=== PATIENT | male | born 1995 | race Caucasian/White ===

== ENCOUNTER 2022-03-19 21:13 | Emergency (ER) | payer OTHER ==
[2022-03-19] MEDS ORDERED: Sodium Chloride 0.9% 1000 ML 1,000 ML ONE (22:09)
[2022-03-19] MEDS: Sodium Chloride 0.9% 1000 ML 1,000 ML IV STA (22:10)
[2022-03-19 22:30] LABS: Absolute Neutrophil Ct (ANC) 1.68 x10^3/uL (1.4-6.9); Basophil (Absolute #) 0.05 x10^3/uL (0-0.4); Eosinophil % 0.5 % (0.00-5.0); Eosinophil (Absolute #) 0.02 x10^3/uL (0-0.5); Hematocrit 45.6 % (42-50); Hemoglobin 15.6 g/dL (12.5-18.0); Lymphocyte (Absolute #) 2.15 x10^3/uL (1.0-4.6); Lymphocytes % 50.1 % (24.0-44.0); Mean Cell Volume 96.8 fL (78-100); Mean Corpuscular Hemoglobin 33.1 pg (26-32); Mean Corpuscular Hgb Concent. 34.2 g/dL (32-36); Mean Platelet Volume 10.4 fL (7.5-11.0); Monocyte (Absolute #) 0.38 x10^3/uL (0.0-1.3); Monocytes % 8.9 % (0.0-12.0); Neutrophil % 39.1 % (36.0-66.0); Platelet Count 211 x10^3/uL (150-450); Red Blood Count 4.71 x10^6/uL (4.1-5.6); White Blood Count 4.3 x10^3/uL (4.0-10.5)
[2022-03-19 22:45] LABS: ACETAMINOPHEN < 10 ug/ml (10-30); ALBUMIN 4.7 g/dL (3.5-5.0); ALKALINE PHOSPHATASE 109 U/L (38-126); BLOOD UREA NITROGEN 3 mg/dL (9-20); CHLORIDE 106 mmol/L (98-107); Calcium 8.5 mg/dL (8.4-10.2); Carbon Dioxide 27 mmol/L (22-30); EST GLOMERULAR FILTRATION RATE > 60.0 ML/MIN; Glucose 108 mg/dL (74-106); Potassium 3.6 mmol/L (3.5-5.1); SALICYLATE < 1.0 mg/dL (2-20); SGOT/AST 80 U/L (17-59); SGPT/ALT 136 U/L (0-50); SODIUM 149 mmol/L (137-145); Total Protein 7.3 g/dL (6.3-8.2)
[2022-03-19 22:59] LABS: ETHYL ALCOHOL 438 mg/dL (0-10)
[2022-03-20 01:04] VITALS: O2SAT 98
[2022-03-20 01:04] LABS: Bacteria RARE /HPF (NEGATIVE)
[2022-03-20 01:05] LABS: Appearance CLEAR (CLEAR); Bilirubin NEGATIVE (NEGATIVE); Glucose NEGATIVE (NEGATIVE); Ketones NEGATIVE (NEGATIVE); Nitrite NEGATIVE (NEGATIVE); Protein,Urine Dip NEGATIVE (Negative); RBC TRACE-LYSED Ery/ul (0-5); Specific Gravity 1.015 (1.005-1.025); Urine Cultured Indicated? NO; Urobilinogen 0.2 mg/dL (0-1)
[2022-03-20 01:06] LABS: Dipstick done @ ? MAIN LAB
[2022-03-20 01:18] LABS: Amphetamine,Urine NEGATIVE (NEGATIVE); Barbiturate,Urine NEGATIVE (NEGATIVE); Benzodiazepine,Urine NEGATIVE (NEGATIVE); Cocaine,Urine NEGATIVE (NEGATIVE); Methadone,Urine NEGATIVE (NEGATIVE); Opiate,Urine NEGATIVE (NEGATIVE); PCP,Urine NEGATIVE (NEGATIVE); THC,Urine NEGATIVE (NEGATIVE)
--- NOTE | 2022-03-20 02:15 | ERPHSYRPT ---
- History of Present Illness Source: patient, EMS Exam Limitations: intoxication Patient Subjective Stated Complaint: per ems. pt got out of [facility] yesterday. has been drinking today and drank almost an entire bottle of dark eyes vodka. Triage Nursing Assessment: pt wakes to painful stimuli. does not answer questions at this time but does follow commands. respirations nonlabored. lungs cta. skin warm and dry. pupils dilated, equal and reactive. pt not answering questions at this time. no family with pt. hx obtained from pt's chart. Physician History: 26 yo WM who signed himself out of [facility] yesterday where he had been admitted for alcohol detox. Pt was also SIGRID's to [facility] several days earlier for intoxication. Pt is sleepy but is maintaining a good airway and is oriented x3. He denies suicidal ideation. Pt drank vodka after leaving [facility]. Timing/Duration: today Severity of Symptoms-Max: moderate Severity of Symptoms-Current: mild Associated Symptoms: No angry, No agitated, No anxiety, No confused, No d epressed, No frustrated, No hostile, No hallucinating, No impaired concentration, No ingestion, No injury, No insomnia, No paranoid, No suicidal ideation Previous symptoms: same symptoms as today Allergies/Adverse Reactions: No Known Drug Allergies Allergy (Verified 03/19/22 21:51) Home Medications: Acamprosate Calcium 666 mg PO TIDAC 03/19/22 [History] Chlordiazepoxide HCl 10 mg [Librium 10 MG] 20 mg PO Q8H PRN PRN 03/19/22 [History] Escitalopram Oxalate 20 mg PO DAILY 03/19/22 [History] Trazodone HCl 50 mg [Desyrel 50 mg] 50 mg PO HS PRN PRN 03/19/22 [History] hydrOXYzine HCL [Hydroxyzine HCl] 50 mg PO Q6H PRN PRN 03/19/22 [History] Hx Influenza Vaccination/Date Given: No Hx Pneumococcal Vaccination/Date Given: No Travel Risk - International Travel Have you traveled outside of the country in past 3 weeks: No - Coronavirus Screening Are you exhibiting any of the following symptoms?: No Close contact with a COVID-19 positive Pt in past 14-21 Days: No - Vaccine Status Have you recieved a Covid-19 vaccination: No Excellence Specialist: Unknown - Vaccination Dates Dates if Unknown: [place] - Past Medical History Pertinent Past Medical History: No Other Medical History: alcohol abuse - Past Surgical History Past Surgical History: No - Social History Smoking Status: Never smoker Exposure to second hand smoke: No Patient Lives Alone: No Significant Family History: no pertinent family hx - Review of Systems Constitutional: No Symptoms Eyes: No Symptoms Ears, Nose, & Throat: No Symptoms Respiratory: No Symptoms Cardiac: No Symptoms Abdominal/Gastrointestinal: No Symptoms Genitourinary Symptoms: No Symptoms Musculoskeletal: No Symptoms Skin: No Symptoms Neurological: No Symptoms Psychological: No Symptoms Endocrine: No Symptoms Hematologic/Lymphatic: No Symptoms Immunological/Allergic: No Symptoms - Nursing Vital Signs Nursing Vital Signs: Initial Vital Signs Temperature 97.4 F 03/19/22 21:34 Pulse Rate 70 03/19/22 21:34 Respiratory Rate 14 03/19/22 21:34 Blood Pressure 129/95 03/19/22 21:34 O2 Sat by Pulse Oximetry 99 03/19/22 21:34 Pain Scale Pain Intensity 75 WNL - Physical Exam General Appearance: no apparent distress (Somnolent ) Eyes, Ears, Nose, Throat Exam: normal ENT inspection, TMs normal, pharynx normal Neck Exam: normal inspection, non-tender, supple, full range of motion, No Brudzinski, No Kernig's, No meningismus, No carotid bruit Respiratory Exam: normal breath sounds, lungs clear, airway intact, No respiratory distress Cardiovascular Exam: regular rate/rhythm, normal heart sounds, normal peripheral pulses, capillary refill <2 sec, No murmur Gastrointestinal/Abdominal Exam: soft, normal bowel sounds, No tenderness Extremities Exam: normal inspection Peripheral Pulses: carotid (R): 2+, carotid (L): 2+ Current Suicidality: denies suicide plan 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, oriented x 3 Behavior/Eye Contact/Speech: cooperative, good eye contact, intoxicated appearance Thoughts/Hallucinations: no apparent hallucination, No auditory hallucinations Skin Exam: normal color, warm, dry, No rash SpO2 Interpretation: normal SpO2: 98 O2 Delivery: Room Air - Course Nursing assessment & vital signs reviewed: Yes Ordered Tests: Active Orders 24 hr Category Date Time Status EKG-ER Only STAT Care 03/19/22 21:50 Completed ACETAMINOPHEN Stat Lab 03/19/22 22:26 Completed Alcohol [ETHYL ALCOHOL] Stat Lab 03/20/22 00:53 Completed CBC W DIFF Stat Lab 03/19/22 22:26 Completed CMP Stat Lab 03/19/22 22:26 Completed ETHYL ALCOHOL Stat Lab 03/19/22 22:26 Completed SALICYLATE Stat Lab 03/19/22 22:26 Completed UA W/RFX CULTURE Stat Lab 03/20/22 00:13 Completed Urine Triage Profile Stat Lab 03/20/22 00:00 Completed Medication Summary Discontinued Medications Generic Name Dose Route Start Last Admin Trade Name Jason PRN Reason Stop Dose Admin Sodium Chloride 1,000 mls @ 999 mls/hr 03/19/22 21:50 03/20/22 01:31 Sodium Chloride 0.9% 1000 Ml IV 03/19/22 22:50 Infused .Q1H1M STA Infusion Sodium Chloride Confirm 03/19/22 22:09 Sodium Chloride 0.9% 1000 Ml Administered 03/19/22 22:10 Dose 1,000 mls @ ud .ROUTE .[facility] Lab/Rad Data: Laboratory Result Diagrams 03/19/22 22:26 03/19/22 22:26 Laboratory Results 03/20/22 03/20/22 03/20/22 Range/Units 00:53 00:13 00:00 WBC (4.0-10.5) x10^3/uL RBC (4.1-5.6) x10^6/uL Hgb (12.5-18.0) g/dL Hct (42-50) % MCV (78-100) fL MCH (26-32) pg MCHC (32-36) g/dL RDW (11.5-14.0) % Plt Count (150-450) x10^3/uL MPV (7.5-11.0) fL Gran % (36.0-66.0) % Immature Gran % (Auto) (0.00-0.4) % Nucleat RBC Rel Count (0.00-0.1) % Eos # (Auto) (0-0.5) x10^3/uL Immature Gran # (Auto) (0.00-0.03) x10^3u/L Absolute Lymphs (auto) (1.0-4.6) x10^3/uL Absolute Monos (auto) (0.0-1.3) x10^3/uL Absolute Nucleated RBC (0.00-0.01) x10^3u/L Lymphocytes % (24.0-44.0) % Monocytes % (0.0-12.0) % Eosinophils % (0.00-5.0) % Basophils % (0.0-0.4) % Absolute Granulocytes (1.4-6.9) x10^3/uL Basophils # (0-0.4) x10^3/uL Sodium (137-145) mmol/L Potassium (3.5-5.1) mmol/L Chloride (98-107) mmol/L Carbon Dioxide (22-30) mmol/L Anion Gap (5-15) MEQ/L BUN (9-20) mg/dL Creatinine (0.66-1.25) mg/dL Estimated GFR ML/MIN Glucose (74-106) mg/dL Calcium (8.4-10.2) mg/dL Total Bilirubin (0.2-1.3) mg/dL AST (17-59) U/L ALT (0-50) U/L Alkaline Phosphatase (38-126) U/L Serum Total Protein (6.3-8.2) g/dL Albumin (3.5-5.0) g/dL Urinalys Dipstick Clnc MAIN LAB Urine Color YELLOW (YELLOW) Urine Appearance CLEAR (CLEAR) Urine pH 6.0 (5-6) Ur Specific Avalon 1.015 (1.005-1.025) POC Urine Protein Conf NEGATIVE (Negative) Urine Ketones NEGATIVE (NEGATIVE) Urine Nitrite NEGATIVE (NEGATIVE) Urine Bilirubin NEGATIVE (NEGATIVE) Urine Urobilinogen 0.2 (0-1) mg/dL Urine Leukocytes NEGATIVE (NEGATIVE) Urine WBC (Auto) NONE (0-5) /HPF Urine RBC (Auto) NONE (0-2) /HPF U Epithel Cells (Auto) NONE (FEW) /HPF Urine Bacteria (Auto) RARE (NEGATIVE) /HPF Urine RBC TRACE-LYSED (0-5) [place]/ul Ur Culture Indicated? NO Urine Glucose NEGATIVE (NEGATIVE) mg/dL Salicylates (2-20) mg/dL Urine Opiates Level NEGATIVE (NEGATIVE) Ur Methadone NEGATIVE (NEGATIVE) Acetaminophen (10-30) ug/ml Urine Barbiturates NEGATIVE (NEGATIVE) Ur Phencyclidine (PCP) NEGATIVE (NEGATIVE) Urine Amphetamine NEGATIVE (NEGATIVE) U Benzodiazepine Level NEGATIVE (NEGATIVE) Urine Cocaine NEGATIVE (NEGATIVE) Urine Marijuana (THC) NEGATIVE (NEGATIVE) Ethyl Alcohol 363 H (0-10) mg/dL 03/19/22 03/19/22 Range/Units 22:26 22:26 WBC 4.3 (4.0-10.5) x10^3/uL RBC 4.71 (4.1-5.6) x10^6/uL Hgb 15.6 (12.5-18.0) g/dL Hct 45.6 (42-50) % MCV 96.8 (78-100) fL MCH 33.1 H (26-32) pg MCHC 34.2 (32-36) g/dL RDW 12.0 (11.5-14.0) % Plt Count 211 (150-450) x10^3/uL MPV 10.4 (7.5-11.0) fL Gran % 39.1 (36.0-66.0) % Immature Gran % (Auto) 0.2 (0.00-0.4) % Nucleat RBC Rel Count 0.0 (0.00-0.1) % Eos # (Auto) 0.02 (0-0.5) x10^3/uL Immature Gran # (Auto) 0.01 (0.00-0.03) x10^3u/L Absolute Lymphs (auto) 2.15 (1.0-4.6) x10^3/uL Absolute Monos (auto) 0.38 (0.0-1.3) x10^3/uL Absolute Nucleated RBC 0.00 (0.00-0.01) x10^3u/L Lymphocytes % 50.1 H (24.0-44.0) % Monocytes % 8.9 (0.0-12.0) % Eosinophils % 0.5 (0.00-5.0) % Basophils % 1.2 (0.0-0.4) % Absolute Granulocytes 1.68 (1.4-6.9) x10^3/uL Basophils # 0.05 (0-0.4) x10^3/uL Sodium 149 H (137-145) mmol/L Potassium 3.6 (3.5-5.1) mmol/L Chloride 106 (98-107) mmol/L Carbon Dioxide 27 (22-30) mmol/L Anion Gap 19.0 H (5-15) MEQ/L BUN 3 L (9-20) mg/dL Creatinine 0.90 (0.66-1.25) mg/dL Estimated GFR > 60.0 ML/MIN Glucose 108 H (74-106) mg/dL Calcium 8.5 (8.4-10.2) mg/dL Total Bilirubin 0.90 (0.2-1.3) mg/dL AST 80 H (17-59) U/L ALT 136 H (0-50) U/L Alkaline Phosphatase 109 (38-126) U/L Serum Total Protein 7.3 (6.3-8.2) g/dL Albumin 4.7 (3.5-5.0) g/dL Urinalys Dipstick Clnc Urine Color (YELLOW) Urine Appearance (CLEAR) Urine pH (5-6) Ur Specific Avalon (1.005-1.025) POC Urine Protein Conf (Negative) Urine Ketones (NEGATIVE) Urine Nitrite (NEGATIVE) Urine Bilirubin (NEGATIVE) Urine Urobilinogen (0-1) mg/dL Urine Leukocytes (NEGATIVE) Urine WBC (Auto) (0-5) /HPF Urine RBC (Auto) (0-2) /HPF U Epithel Cells (Auto) (FEW) /HPF Urine Bacteria (Auto) (NEGATIVE) /HPF Urine RBC (0-5) [place]ari[place]/ul Ur Culture Indicated? Urine Glucose (NEGATIVE) mg/dL Salicylates < 1.0 L (2-20) mg/dL Urine Opiates Level (NEGATIVE) Ur Methadone (NEGATIVE) Acetaminophen < 10 L (10-30) ug/ml Urine Barbiturates (NEGATIVE) Ur Phencyclidine (PCP) (NEGATIVE) Urine Amphetamine (NEGATIVE) U Benzodiazepine Level (NEGATIVE) Urine Cocaine (NEGATIVE) Urine Marijuana (THC) (NEGATIVE) Ethyl Alcohol 438 H (0-10) mg/dL - Progress Progress: improved Progress Note: 03/20/22 02:17 Pt w good airway during entire stay. He has been somnolent, but he is easily arousable. Pt is oriented x3 and denies suicidal ideation during entire stay. 03/20/22 06:05 Pt discharged to his mother Counseled pt/family regarding: lab results, diagnosis, need for follow-up - Departure Departure Disposition: Home Clinical Impression: Alcohol abuse Condition: Stable Critical Care Time: No Referrals: [employer] [Primary Care Provider] - Follow up/PCP as directed Instructions: Alcohol Use Disorder (DC) Additional Instructions: Follow up with your family MD and a good treatment center Return to ER as needed
[2022-03-20 04:06] VITALS: BP 124/81; PULSE 90
== END 2022-03-20 04:58 | disposition home or self-care (01) ==
LOC: ED 21:13
DX: F10.129 Alcohol abuse with intoxication, unspecified (principal); Y90.8 Blood alcohol level of 240 mg/100 ml or more; Z79.899 Other long term (current) drug therapy
CPT/HCPCS: 36415; 80053; 80307; 81015; 85025; 93005; 96360; 99284; G0480

== ENCOUNTER 2022-06-05 11:34 | Observation (INO) | payer OTHER ==
--- NOTE | 2022-06-05 11:40 | ERPHSYRPT ---
- History of Present Illness Time Seen by Provider: 06/05/22 11:40 Source: patient Exam Limitations: no limitations Physician History: This is a 27-year-old white male patient who has a history of alcoholism and alcohol abuse as well as a history of alcohol withdrawal symptoms in the past. Patient was in a rehab center in [place] as recent as a month ago. He did well abstaining from alcohol ingestion for couple weeks and then was placed in a home and then began drinking alcohol shortly thereafter on a daily basis. He admits to drinking alcohol as recent as last night. He has been off all his medications that he was prescribed. His mother is present and states that he either is not taking them or not taking them as prescribed. Patient denies being suicidal or homicidal. Patient has had symptoms of nausea, vomiting and body aches for the last few days. He has not been febrile. He denies using illicit drugs. He denies shortness of breath. He denies chest pain. Timing/Duration: day(s) (Last few days), worse Severity of Symptoms-Max: moderate Severity of Symptoms-Current: moderate Context related to: other (Alcoholism) Associated Symptoms: other (Chronic alcoholism) Previous symptoms: same symptoms as today Allergies/Adverse Reactions: No Known Drug Allergies Allergy (Verified 06/05/22 11:42) Home Medications: Escitalopram Oxalate 20 mg PO DAILY 03/19/22 [History] Buspirone HCl 1 tab PO DAILY 06/05/22 [History] Carvedilol [Coreg ] 1 tab PO BID 06/05/22 [History] Folic Acid 1 tab PO DAILY 06/05/22 [History] Hx Influenza Vaccination/Date Given: No Hx Pneumococcal Vaccination/Date Given: No Travel Risk - International Travel Have you traveled outside of the country in past 3 weeks: No - Coronavirus Screening Are you exhibiting any of the following symptoms?: Yes Symptoms: Vomiting/Diarrhea, Headaches/Body Aches/Fatigue - Vaccine Status Have you recieved a Covid-19 vaccination: No Keno Clerk: Unknown - Vaccination Dates Dates if Unknown: [place] - Past Medical History Pertinent Past Medical History: Yes Psycho-Social History: Other (Chronic alcoholism) Other Medical History: alcohol abuse - Past Surgical History Past Surgical History: No - Social History Smoking Status: Never smoker Exposure to second hand smoke: No Patient Lives Alone: No Significant Family History: no pertinent family hx - Review of Systems Constitutional: No Symptoms Eyes: No Symptoms Ears, Nose, & Throat: No Symptoms Respiratory: No Symptoms Cardiac: No Symptoms Abdominal/Gastrointestinal: Nausea, Vomiting, Diarrhea Genitourinary Symptoms: No Symptoms Musculoskeletal: Arthralgias, Myalgias Skin: No Symptoms Neurological: No Symptoms Psychological: No Symptoms Endocrine: No Symptoms Hematologic/Lymphatic: No Symptoms Immunological/Allergic: No Symptoms All Other Systems: Reviewed and Negative - Nursing Vital Signs Nursing Vital Signs: Initial Vital Signs Temperature 97.2 F 06/05/22 11:34 Pulse Rate 97 H 06/05/22 11:34 Respiratory Rate 16 06/05/22 11:34 Blood Pressure 155/109 06/05/22 11:34 O2 Sat by Pulse Oximetry 98 06/05/22 11:34 Pain Scale Pain Intensity 3 - Physical Exam General Appearance: mild distress, alert, anxiety Eyes, Ears, Nose, Throat Exam: normal ENT inspection, moist mucous membranes Neck Exam: normal inspection, non-tender, supple, full range of motion Respiratory Exam: normal breath sounds, lungs clear, airway intact, No chest tenderness, No respiratory distress Cardiovascular Exam: regular rate/rhythm, normal heart sounds, normal peripheral pulses Gastrointestinal/Abdominal Exam: soft, normal bowel sounds, No tenderness Extremities Exam: normal inspection, normal range of motion, No evidence of injury Current Suicidality: denies suicide plan Neurological Exam: alert, normal mood/affect, calm, stud driver II-XII nml as tested, oriented x 3 Appearance: appropriate appearance, impaired insight Behavior/Eye Contact/Speech: alert & cooperative Skin Exam: normal color, warm, dry SpO2 Interpretation: normal O2 Delivery: Room Air - Course Nursing assessment & vital signs reviewed: Yes Ordered Tests: Active Orders 24 hr Category Date Time Status EKG-ER Only STAT Care 06/05/22 11:40 Active IV Insertion STAT Care 06/05/22 11:55 Active IV Insertion-2nd Peripheral STAT Care 06/05/22 14:01 Active Telemetry q4h Care 06/05/22 12:53 Active ACETAMINOPHEN Stat Lab 06/05/22 12:12 Completed AMYLASE Stat Lab 06/05/22 13:53 Completed CBC W DIFF Stat Lab 06/05/22 12:12 Completed CMP Stat Lab 06/05/22 12:12 Completed ETHYL ALCOHOL Stat Lab 06/05/22 12:12 Completed LIPASE Stat Lab 06/05/22 13:53 Completed MAG [MAGNESIUM] Stat Lab 06/05/22 13:57 Completed SALICYLATE Stat Lab 06/05/22 12:12 Completed UA W/RFX CULTURE Stat Lab 06/05/22 12:39 Completed Urine Triage Profile Stat Lab 06/05/22 12:39 Completed Transfer Order Routine Transfer 06/05/22 Ordered Medication Summary Generic Name Dose Route Start Last Admin Trade Name Jason PRN Reason Stop Dose Admin Potassium Chloride 20 meq in 100 mls @ 50 mls/hr 06/05/22 13:00 06/05/22 13:02 Potassium Chloride 20 Meq In Water 100ml IV 06/05/22 16:59 50 mls/hr Q2H DION Administration Sodium Chloride 1,000 mls @ 100 mls/hr 06/05/22 13:15 06/05/22 13:02 Sodium Chloride 0.9% 1000 Ml IV 07/05/22 13:14 100 mls/hr .Q10H DION Administration Sodium Chloride 1,000 mls @ 999 mls/hr 06/05/22 13:40 06/05/22 13:53 Sodium Chloride 0.9% 1000 Ml IV 06/05/22 14:40 999 mls/hr .Q1H1M STA Administration Magnesium Sulfate/Water 2 gm in 50 mls @ 100 mls/hr 06/05/22 14:10 Magnesium Sulf 2 G/50 Ml Bag IV 06/05/22 14:39 ONCE ONE Discontinued Medications Generic Name Dose Route Start Last Admin Trade Name Jason PRN Reason Stop Dose Admin Sodium Chloride 1,000 mls @ 999 mls/hr 06/05/22 12:40 06/05/22 13:46 Sodium Chloride 0.9% 1000 Ml IV 06/05/22 13:40 Infused .Q1H1M STA Infusion Sodium Chloride Confirm 06/05/22 12:41 Sodium Chloride 0.9% 1000 Ml Administered 06/05/22 12:42 Dose 1,000 mls @ ud .ROUTE .STK-MED ONE Sodium Chloride Confirm 06/05/22 12:59 Sodium Chloride 0.9% 1000 Ml Administered 06/05/22 13:00 Dose 1,000 mls @ ud .ROUTE .STK-MED ONE Lorazepam 2 mg 06/05/22 12:07 06/05/22 12:11 Lorazepam 2 Mg/1 Ml 2 Mg Vial IV 06/05/22 12:08 2 mg STAT ONE Administration Lorazepam Confirm 06/05/22 12:10 Lorazepam 2 Mg/1 Ml 2 Mg Vial Administered 06/05/22 12:11 Dose 2 mg .ROUTE .STK-MED ONE Ondansetron HCl 4 mg 06/05/22 12:40 06/05/22 12:44 Ondansetron Hcl 4 Mg/2 Ml Vial IV 06/05/22 12:41 4 mg STAT ONE Administration Ondansetron HCl Confirm 06/05/22 12:41 Ondansetron Hcl 4 Mg/2 Ml Vial Administered 06/05/22 12:42 Dose 4 mg .ROUTE .STK-MED ONE Pantoprazole Sodium 40 mg 06/05/22 12:40 06/05/22 12:44 Pantoprazole 40 Mg Vial IV 06/05/22 12:41 40 mg STAT ONE Administration Pantoprazole Sodium Confirm 06/05/22 12:41 Pantoprazole 40 Mg Vial Administered 06/05/22 12:42 Dose 40 mg IV .STK-MED ONE Lab/Rad Data: Laboratory Result Diagrams 06/05/22 12:12 06/05/22 12:12 Laboratory Results 06/05/22 06/05/22 06/05/22 Range/Units 13:57 13:53 12:39 WBC (4.0-10.5) x10^3/uL RBC (4.1-5.6) x10^6/uL Hgb (12.5-18.0) g/dL Hct (42-50) % MCV (78-100) fL MCH (26-32) pg MCHC (32-36) g/dL RDW (11.5-14.0) % Plt Count (150-450) x10^3/uL MPV (7.5-11.0) fL Gran % (36.0-66.0) % Immature Gran % (Auto) (0.00-0.4) % Nucleat RBC Rel Count (0.00-0.1) % Eos # (Auto) (0-0.5) x10^3/uL Immature Gran # (Auto) (0.00-0.03) x10^3u/L Absolute Lymphs (auto) (1.0-4.6) x10^3/uL Absolute Monos (auto) (0.0-1.3) x10^3/uL Absolute Nucleated RBC (0.00-0.01) x10^3u/L Lymphocytes % (24.0-44.0) % Monocytes % (0.0-12.0) % Eosinophils % (0.00-5.0) % Basophils % (0.0-0.4) % Absolute Granulocytes (1.4-6.9) x10^3/uL Basophils # (0-0.4) x10^3/uL Sodium (137-145) mmol/L Potassium (3.5-5.1) mmol/L Chloride (98-107) mmol/L Carbon Dioxide (22-30) mmol/L Anion Gap (5-15) MEQ/L BUN (9-20) mg/dL Creatinine (0.66-1.25) mg/dL Estimated GFR ML/MIN Glucose (74-106) mg/dL Calcium (8.4-10.2) mg/dL Magnesium 1.0 L* (1.6-2.3) mg/dL Total Bilirubin (0.2-1.3) mg/dL AST (17-59) U/L ALT (0-50) U/L Alkaline Phosphatase (38-126) U/L Serum Total Protein (6.3-8.2) g/dL Albumin (3.5-5.0) g/dL Amylase 39 (30-110) U/L Lipase 290 (23-300) U/L Urinalys Dipstick Clnc MAIN LAB Urine Color MARYLU (YELLOW) Urine Appearance CLEAR (CLEAR) Urine pH 5.5 (5-6) Ur Specific [place] 1.020 (1.005-1.025) POC Urine Protein Conf 30 A (Negative) Urine Ketones TRACE A (NEGATIVE) Urine Nitrite NEGATIVE (NEGATIVE) Urine Bilirubin SMALL A (NEGATIVE) Urine Urobilinogen >=8.0 A (0-1) mg/dL Urine Leukocytes NEGATIVE (NEGATIVE) Urine WBC (Auto) 0-2 (0-5) /HPF Urine RBC (Auto) NONE (0-2) /HPF U Hyaline Cast (Auto) 11-25 A (0-2) /LPF U Epithel Cells (Auto) RARE (FEW) /HPF Urine Bacteria (Auto) RARE (NEGATIVE) /HPF Urine RBC NEGATIVE (0-5) [place]/ul Urine Mucus (Auto) SLIGHT A (NEGATIVE) /HPF Ur Culture Indicated? NO Urine Glucose 100 A (NEGATIVE) mg/dL Salicylates (2-20) mg/dL Urine Opiates Level (NEGATIVE) Ur Methadone (NEGATIVE) Acetaminophen (10-30) ug/ml Urine Barbiturates (NEGATIVE) Ur Phencyclidine (PCP) (NEGATIVE) Urine Amphetamine (NEGATIVE) U Benzodiazepine Level (NEGATIVE) Urine Cocaine (NEGATIVE) Urine Marijuana (THC) (NEGATIVE) Ethyl Alcohol (0-10) mg/dL Influenza Type A Ag (NEGATIVE) Influenza Type B Ag (NEGATIVE) RSV (PCR) (Negative) SARS-CoV-2 (PCR) (NEGATIVE) 06/05/22 06/05/22 06/05/22 Range/Units 12:39 12:12 12:12 WBC (4.0-10.5) x10^3/uL RBC (4.1-5.6) x10^6/uL Hgb (12.5-18.0) g/dL Hct (42-50) % MCV (78-100) fL MCH (26-32) pg MCHC (32-36) g/dL RDW (11.5-14.0) % Plt Count (150-450) x10^3/uL MPV (7.5-11.0) fL Gran % (36.0-66.0) % Immature Gran % (Auto) (0.00-0.4) % Nucleat RBC Rel Count (0.00-0.1) % Eos # (Auto) (0-0.5) x10^3/uL Immature Gran # (Auto) (0.00-0.03) x10^3u/L Absolute Lymphs (auto) (1.0-4.6) x10^3/uL Absolute Monos (auto) (0.0-1.3) x10^3/uL Absolute Nucleated RBC (0.00-0.01) x10^3u/L Lymphocytes % (24.0-44.0) % Monocytes % (0.0-12.0) % Eosinophils % (0.00-5.0) % Basophils % (0.0-0.4) % Absolute Granulocytes (1.4-6.9) x10^3/uL Basophils # (0-0.4) x10^3/uL Sodium 127 L (137-145) mmol/L Potassium 2.3 L* (3.5-5.1) mmol/L Chloride 83 L (98-107) mmol/L Carbon Dioxide 28 (22-30) mmol/L Anion Gap 17.4 H (5-15) MEQ/L BUN 2 L (9-20) mg/dL Creatinine 0.92 (0.66-1.25) mg/dL Estimated GFR > 60.0 ML/MIN Glucose 165 H (74-106) mg/dL Calcium 8.4 (8.4-10.2) mg/dL Magnesium (1.6-2.3) mg/dL Total Bilirubin 1.60 H (0.2-1.3) mg/dL AST 90 H (17-59) U/L ALT 50 (0-50) U/L Alkaline Phosphatase 122 (38-126) U/L Serum Total Protein 7.8 (6.3-8.2) g/dL Albumin 4.6 (3.5-5.0) g/dL Amylase (30-110) U/L Lipase (23-300) U/L Urinalys Dipstick Clnc Urine Color (YELLOW) Urine Appearance (CLEAR) Urine pH (5-6) Ur Specific [place] (1.005-1.025) POC Urine Protein Conf (Negative) Urine Ketones (NEGATIVE) Urine Nitrite (NEGATIVE) Urine Bilirubin (NEGATIVE) Urine Urobilinogen (0-1) mg/dL Urine Leukocytes (NEGATIVE) Urine WBC (Auto) (0-5) /HPF Urine RBC (Auto) (0-2) /HPF U Hyaline Cast (Auto) (0-2) /LPF U Epithel Cells (Auto) (FEW) /HPF Urine Bacteria (Auto) (NEGATIVE) /HPF Urine RBC (0-5) [place]/ul Urine Mucus (Auto) (NEGATIVE) /HPF Ur Culture Indicated? Urine Glucose (NEGATIVE) mg/dL Salicylates < 1.0 L (2-20) mg/dL Urine Opiates Level NEGATIVE (NEGATIVE) Ur Methadone NEGATIVE (NEGATIVE) Acetaminophen < 10 L (10-30) ug/ml Urine Barbiturates NEGATIVE (NEGATIVE) Ur Phencyclidine (PCP) NEGATIVE (NEGATIVE) Urine Amphetamine NEGATIVE (NEGATIVE) U Benzodiazepine Level NEGATIVE (NEGATIVE) Urine Cocaine NEGATIVE (NEGATIVE) Urine Marijuana (THC) NEGATIVE (NEGATIVE) Ethyl Alcohol 17 H (0-10) mg/dL Influenza Type A Ag NEGATIVE (NEGATIVE) Influenza Type B Ag NEGATIVE (NEGATIVE) RSV (PCR) NEGATIVE (Negative) SARS-CoV-2 (PCR) NEGATIVE (NEGATIVE) 06/05/22 Range/Units 12:12 WBC 4.9 (4.0-10.5) x10^3/uL RBC 4.66 (4.1-5.6) x10^6/uL Hgb 14.8 (12.5-18.0) g/dL Hct 40.4 L (42-50) % MCV 86.7 (78-100) fL MCH 31.8 (26-32) pg MCHC 36.6 H (32-36) g/dL RDW 10.8 L (11.5-14.0) % Plt Count 127 L (150-450) x10^3/uL MPV 11.7 H (7.5-11.0) fL Gran % 64.2 (36.0-66.0) % Immature Gran % (Auto) 0.4 (0.00-0.4) % Nucleat RBC Rel Count 0.0 (0.00-0.1) % Eos # (Auto) 0 (0-0.5) x10^3/uL Immature Gran # (Auto) 0.02 (0.00-0.03) x10^3u/L Absolute Lymphs (auto) 1.21 (1.0-4.6) x10^3/uL Absolute Monos (auto) 0.50 (0.0-1.3) x10^3/uL Absolute Nucleated RBC 0.00 (0.00-0.01) x10^3u/L Lymphocytes % 24.6 (24.0-44.0) % Monocytes % 10.2 (0.0-12.0) % Eosinophils % 0.0 (0.00-5.0) % Basophils % 0.6 (0.0-0.4) % Absolute Granulocytes 3.15 (1.4-6.9) x10^3/uL Basophils # 0.03 (0-0.4) x10^3/uL Sodium (137-145) mmol/L Potassium (3.5-5.1) mmol/L Chloride (98-107) mmol/L Carbon Dioxide (22-30) mmol/L Anion Gap (5-15) MEQ/L BUN (9-20) mg/dL Creatinine (0.66-1.25) mg/dL Estimated GFR ML/MIN Glucose (74-106) mg/dL Calcium (8.4-10.2) mg/dL Magnesium (1.6-2.3) mg/dL Total Bilirubin (0.2-1.3) mg/dL AST (17-59) U/L ALT (0-50) U/L Alkaline Phosphatase (38-126) U/L Serum Total Protein (6.3-8.2) g/dL Albumin (3.5-5.0) g/dL Amylase (30-110) U/L Lipase (23-300) U/L Urinalys Dipstick Clnc Urine Color (YELLOW) Urine Appearance (CLEAR) Urine pH (5-6) Ur Specific [place] (1.005-1.025) POC Urine Protein Conf (Negative) Urine Ketones (NEGATIVE) Urine Nitrite (NEGATIVE) Urine Bilirubin (NEGATIVE) Urine Urobilinogen (0-1) mg/dL Urine Leukocytes (NEGATIVE) Urine WBC (Auto) (0-5) /HPF Urine RBC (Auto) (0-2) /HPF U Hyaline Cast (Auto) (0-2) /LPF U Epithel Cells (Auto) (FEW) /HPF Urine Bacteria (Auto) (NEGATIVE) /HPF Urine RBC (0-5) [place]/ul Urine Mucus (Auto) (NEGATIVE) /HPF Ur Culture Indicated? Urine Glucose (NEGATIVE) mg/dL Salicylates (2-20) mg/dL Urine Opiates Level (NEGATIVE) Ur Methadone (NEGATIVE) Acetaminophen (10-30) ug/ml Urine Barbiturates (NEGATIVE) Ur Phencyclidine (PCP) (NEGATIVE) Urine Amphetamine (NEGATIVE) U Benzodiazepine Level (NEGATIVE) Urine Cocaine (NEGATIVE) Urine Marijuana (THC) (NEGATIVE) Ethyl Alcohol (0-10) mg/dL Influenza Type A Ag (NEGATIVE) Influenza Type B Ag (NEGATIVE) RSV (PCR) (Negative) SARS-CoV-2 (PCR) (NEGATIVE) - Progress Progress: improved Progress Note: 06/05/22 13:54 Medical decision making: This patient has chronic alcoholism and has had nausea vomiting and diarrhea symptoms. He now has hypokalemia. I spoke with Dr. Brantley who is covering for unassigned patients today. We will place him in observation and provide him with IV hydration and potassium supplementation using potassium replacement protocol as well as alcohol withdrawal protocol. Discussed with : Shannan Counseled pt/family regarding: lab results, diagnosis - Departure Departure Disposition: Home Clinical Impression: Hypokalemia, Chronic alcoholism, Hypomagnesemia Condition: Stable Critical Care Time: No Referrals: JORGE FRANKEL, TAX[employer]ER REPAIRER [Nurse Practioner] - Follow up/PCP as directed
[2022-06-05] MEDS ORDERED: Ativan 2 MG/1 ML VIAL IV ONE (12:07)
[2022-06-05] MEDS ORDERED: Ativan 2 MG/1 ML VIAL ONE (12:10)
[2022-06-05 12:21] LABS: Absolute Neutrophil Ct (ANC) 3.15 x10^3/uL (1.4-6.9); Basophil (Absolute #) 0.03 x10^3/uL (0-0.4); Eosinophil (Absolute #) 0 x10^3/uL (0-0.5); Hematocrit 40.4 % (42-50); Hemoglobin 14.8 g/dL (12.5-18.0); Lymphocyte (Absolute #) 1.21 x10^3/uL (1.0-4.6); Lymphocytes % 24.6 % (24.0-44.0); Mean Cell Volume 86.7 fL (78-100); Mean Corpuscular Hemoglobin 31.8 pg (26-32); Mean Corpuscular Hgb Concent. 36.6 g/dL (32-36); Mean Platelet Volume 11.7 fL (7.5-11.0); Monocytes % 10.2 % (0.0-12.0); Neutrophil % 64.2 % (36.0-66.0); Platelet Count 127 x10^3/uL (150-450); Red Blood Count 4.66 x10^6/uL (4.1-5.6); Red Cell Distribution Width 10.8 % (11.5-14.0); White Blood Count 4.9 x10^3/uL (4.0-10.5)
[2022-06-05 12:27] LABS: ACETAMINOPHEN < 10 ug/ml (10-30); ALBUMIN 4.6 g/dL (3.5-5.0); ALKALINE PHOSPHATASE 122 U/L (38-126); ANION GAP 17.4 MEQ/L (5-15); CHLORIDE 83 mmol/L (98-107); Calcium 8.4 mg/dL (8.4-10.2); Carbon Dioxide 28 mmol/L (22-30); Creatinine 1 0.92 mg/dL (0.66-1.25); EST GLOMERULAR FILTRATION RATE > 60.0 ML/MIN; ETHYL ALCOHOL 17 mg/dL (0-10); Glucose 165 mg/dL (74-106); SALICYLATE < 1.0 mg/dL (2-20); SGOT/AST 90 U/L (17-59); SGPT/ALT 50 U/L (0-50); SODIUM 127 mmol/L (137-145); Total Protein 7.8 g/dL (6.3-8.2)
[2022-06-05] MEDS ORDERED: Sodium Chloride 0.9% 1000 ML 1,000 ML IV STA ×2 (12:40→13:40)
[2022-06-05] MEDS ORDERED: PROTONIX 40 MG IV IV ONE ×2 (12:40→12:41)
[2022-06-05] MEDS ORDERED: Zofran 4 MG/2 ML VIAL IV ONE (12:40)
[2022-06-05] MEDS ORDERED: Sodium Chloride 0.9% 1000 ML 1,000 ML ONE ×3 (12:41→13:52)
[2022-06-05] MEDS ORDERED: Zofran 4 MG/2 ML VIAL ONE (12:41)
[2022-06-05 12:48] LABS: INFLUENZA A NEGATIVE (NEGATIVE); INFLUENZA B NEGATIVE (NEGATIVE); RESPIRATORY SYNCTIAL VIRUS NEGATIVE (Negative); SARS-CoV-2 Xpert Express NEGATIVE (NEGATIVE)
[2022-06-05 12:51] LABS: BLOOD UREA NITROGEN 2 mg/dL (9-20)
[2022-06-05 12:52] LABS: Potassium 2.3 mmol/L (3.5-5.1)
[2022-06-05] MEDS ORDERED: POTASSIUM CHLORIDE 20 mEq IN WATER 100ML 100 ML IV ONE (12:59)
[2022-06-05] MEDS ORDERED: POTASSIUM CHLORIDE 20 mEq IN WATER 100ML 20 MEQ/100 ML BAG IV SCH (13:00)
[2022-06-05 13:10] LABS: Appearance CLEAR (CLEAR); Bilirubin SMALL (NEGATIVE); Glucose 100 mg/dL (NEGATIVE); Ketones TRACE (NEGATIVE)
[2022-06-05 13:11] LABS: Dipstick done @ ? MAIN LAB; Nitrite NEGATIVE (NEGATIVE); Ph 5.5 (5-6); Protein,Urine Dip 30 (Negative); RBC NEGATIVE Ery/ul (0-5); Urobilinogen >=8.0 mg/dL (0-1)
[2022-06-05 13:15] LABS: Bacteria RARE /HPF (NEGATIVE); Epithelial Cells RARE /HPF (FEW); Mucus SLIGHT /HPF (NEGATIVE); WBC 0-2 /HPF (0-5)
[2022-06-05] MEDS ORDERED: Sodium Chloride 0.9% 1000 ML 1,000 ML IV SCH (13:15)
[2022-06-05 13:16] LABS: Urine Cultured Indicated? NO
[2022-06-05 13:43] LABS: Amphetamine,Urine NEGATIVE (NEGATIVE); Barbiturate,Urine NEGATIVE (NEGATIVE); Benzodiazepine,Urine NEGATIVE (NEGATIVE); Cocaine,Urine NEGATIVE (NEGATIVE); Methadone,Urine NEGATIVE (NEGATIVE); Opiate,Urine NEGATIVE (NEGATIVE); PCP,Urine NEGATIVE (NEGATIVE); THC,Urine NEGATIVE (NEGATIVE)
[2022-06-05 14:02] LABS: AMYLASE 39 U/L (30-110); LIPASE 290 U/L (23-300)
[2022-06-05] MEDS ORDERED: MAGNESIUM SULF 2 G/50 ML BAG 2 GM/50 ML PIGGYBACK IV ONE (14:10)
[2022-06-05] MEDS ORDERED: Zofran 4 MG/2 ML VIAL IV PRN (14:30)
[2022-06-05] MEDS ORDERED: Ativan 2 MG/1 ML VIAL IV PRN (14:30)
[2022-06-05] MEDS ORDERED: POTASSIUM CHLORIDE 20 mEq IN WATER 100ML 20 MEQ/100 ML BAG IV ONE (15:30)
[2022-06-05] MEDS: FOLATE 1 MG PO SCH (15:48)
[2022-06-05] MEDS: THERAGRAN MULTIVITAMIN PO SCH (15:48)
[2022-06-05] MEDS: VITAMIN B-1 100 MG PO SCH (15:48)
[2022-06-05] MEDS: Sodium Chloride 0.9% W/ 20 mEq KCl/LITER 1,000 ML IV SCH (15:49)
[2022-06-05 15:57] LABS: Slide Review 1 YES
[2022-06-05] MEDS: Ativan 2 MG/1 ML VIAL IV PRN ×2 (20:08→23:54)
[2022-06-05] MEDS: Coreg PO SCH (22:11)
[2022-06-06] MEDS: Sodium Chloride 0.9% W/ 20 mEq KCl/LITER 1,000 ML IV SCH ×3 (01:16→22:08)
[2022-06-06] MEDS: Ativan 2 MG/1 ML VIAL IV PRN ×5 (05:06→22:53)
[2022-06-06 05:17] LABS: Absolute Neutrophil Ct (ANC) 2.29 x10^3/uL (1.4-6.9); Basophil (Absolute #) 0.03 x10^3/uL (0-0.4); Eosinophil % 0.5 % (0.00-5.0); Eosinophil (Absolute #) 0.02 x10^3/uL (0-0.5); Hematocrit 33.7 % (42-50); Hemoglobin 12.4 g/dL (12.5-18.0); Lymphocyte (Absolute #) 1.55 x10^3/uL (1.0-4.6); Lymphocytes % 35.1 % (24.0-44.0); Mean Cell Volume 87.1 fL (78-100); Mean Corpuscular Hgb Concent. 36.8 g/dL (32-36); Mean Platelet Volume 12.4 fL (7.5-11.0); Monocytes % 11.3 % (0.0-12.0); Neutrophil % 51.9 % (36.0-66.0); Platelet Count 97 x10^3/uL (150-450); Red Blood Count 3.87 x10^6/uL (4.1-5.6); Red Cell Distribution Width 11.1 % (11.5-14.0); White Blood Count 4.4 x10^3/uL (4.0-10.5)
[2022-06-06 05:42] LABS: ALBUMIN 3.3 g/dL (3.5-5.0); ALKALINE PHOSPHATASE 96 U/L (38-126); ANION GAP 6.2 MEQ/L (5-15); BLOOD UREA NITROGEN 4 mg/dL (9-20); CHLORIDE 97 mmol/L (98-107); Calcium 7.5 mg/dL (8.4-10.2); Carbon Dioxide 28 mmol/L (22-30); Creatinine 1 0.84 mg/dL (0.66-1.25); EST GLOMERULAR FILTRATION RATE > 60.0 ML/MIN; Glucose 100 mg/dL (74-106); SGOT/AST 73 U/L (17-59); SGPT/ALT 40 U/L (0-50); SODIUM 129 mmol/L (137-145); Total Protein 5.9 g/dL (6.3-8.2)
[2022-06-06 06:05] LABS: Potassium 2.9 mmol/L (3.5-5.1)
[2022-06-06] MEDS ORDERED: POTASSIUM CHLORIDE 20 mEq IN WATER 100ML 20 MEQ/100 ML BAG IV ONE (06:24)
[2022-06-06] MEDS: Magnesium 1 Gm / 100 Ml D5W*** 100 ML IV SCH ×2 (06:36→07:09)
--- NOTE | 2022-06-06 08:03 | PCM.HP ---
History of Present Illness - Chief Complaint Chief Complaint: Hypokalemia, chronic ETOH History of Present Illness: is a 27 year old male with no local physician, he reportedly was released from an alcohol treatment center in the last few weeks in [facility], since release he has began drinking again, he developed nausea, vomiting and diarrhea and was unable to tolerate po intake. he has no abdominal pain, denies blood in the stool, no fever. - Review of Systems Constitutional: No Fever, No Chills Respiratory: No Cough, No Short Of Breath Cardiac: No Chest Pain, No Edema, No Syncope Abdominal/Gastrointestinal: Nausea, Vomiting, Diarrhea Genitourinary Symptoms: No Dysuria Skin: No Rash All Other Systems: Reviewed and Negative Medications & Allergies Home Medications: Home Medication List Escitalopram Oxalate 20 mg PO DAILY 03/19/22 [History Confirmed 06/05/22] Buspirone HCl 5 mg PO DAILY 06/05/22 [History Confirmed 06/05/22] Carvedilol [Coreg ] 6.25 mg PO BID 06/05/22 [History Confirmed 06/05/22] Folic Acid 1 mg PO DAILY 06/05/22 [History Confirmed 06/05/22] Allergies/Adverse Reactions: Allergies Allergy/AdvReac Type Severity Reaction Status Date / Time No Known Drug Allergies Allergy Verified 06/05/22 11:42 - Past Medical History Past Medical History: Yes Neurological History: No Pertinent History ENT History: No Pertinent History Cardiac History: Hypertension Respiratory History: No Pertinent History Endocrine Medical History: No Pertinent History Musculoskelatal History: Other GI Medical History: No Pertinent History History: No Pertinent History Pyscho-Social History: Other Male Reproductive Disorders: No Pertinent History Comment: alcohol abuse, herniated disc L4-L5 - Past Surgical History Past Surgical History: Yes Neuro Surgical History: No Pertinent History Cardiac History: No Pertinent History Respiratory Surgery: No Pertinent History GI Surgical History: No Pertinent History Genitourinary Surgical Hx: No Pertinent History Musculskeletal Surgical Hx: Other Male Surgical History: No Pertinent History Other Surgical History: Lower back L4-L5 - Social History Smoking Status: Former smoker Exposure to second hand smoke: No Alcohol: Heavy, Daily Drug Use: none Significant Family History: no pertinent family hx - Physical Exam Vital Signs: Vital Signs - 24 hr Temp Pulse Resp BP BP Pulse Ox 06/06/22 07:21 97.5 F 93 H 16 114/81 97 06/06/22 03:58 97.8 F 81 18 119/81 98 06/06/22 00:00 98.6 F 80 20 125/85 98 06/05/22 19:45 98.4 F 89 17 137/93 97 06/05/22 16:01 90 18 127/94 06/05/22 16:00 18 06/05/22 15:01 86 18 127/94 99 06/05/22 14:02 86 16 139/96 99 06/05/22 13:30 89 20 143/95 99 06/05/22 12:03 96 H 16 144/100 96 06/05/22 11:34 97.2 F 97 H 16 155/109 98 General Appearance: no apparent distress Neurologic Exam: alert, cooperative Respiratory Exam: normal breath sounds, lungs clear, No respiratory distress Cardiovascular Exam: regular rate/rhythm, normal heart sounds, normal peripheral pulses Gastrointestinal/Abdomen Exam: soft, normal bowel sounds, No tenderness, No mass Extremity Exam: normal inspection, normal range of motion, pelvis stable Skin Exam: normal color, warm, dry, No rash Results - Labs Lab/Micro Results: Lab Results-Last 24 Hours 06/05/22 06/05/22 06/05/22 Range/Units 12:12 12:12 12:12 WBC 4.9 (4.0-10.5) x10^3/uL RBC 4.66 (4.1-5.6) x10^6/uL Hgb 14.8 (12.5-18.0) g/dL Hct 40.4 L (42-50) % MCV 86.7 (78-100) fL MCH 31.8 (26-32) pg MCHC 36.6 H (32-36) g/dL RDW 10.8 L (11.5-14.0) % Plt Count 127 L (150-450) x10^3/uL MPV 11.7 H (7.5-11.0) fL Gran % 64.2 (36.0-66.0) % Immature Gran % (Auto) 0.4 (0.00-0.4) % Nucleat RBC Rel Count 0.0 (0.00-0.1) % Eos # (Auto) 0 (0-0.5) x10^3/uL Immature Gran # (Auto) 0.02 (0.00-0.03) x10^3u/L Absolute Lymphs (auto) 1.21 (1.0-4.6) x10^3/uL Absolute Monos (auto) 0.50 (0.0-1.3) x10^3/uL Absolute Nucleated RBC 0.00 (0.00-0.01) x10^3u/L Lymphocytes % 24.6 (24.0-44.0) % Monocytes % 10.2 (0.0-12.0) % Eosinophils % 0.0 (0.00-5.0) % Basophils % 0.6 (0.0-0.4) % Absolute Granulocytes 3.15 (1.4-6.9) x10^3/uL Basophils # 0.03 (0-0.4) x10^3/uL Sodium 127 L (137-145) mmol/L Potassium 2.3 L* (3.5-5.1) mmol/L Chloride 83 L (98-107) mmol/L Carbon Dioxide 28 (22-30) mmol/L Anion Gap 17.4 H (5-15) MEQ/L BUN 2 L (9-20) mg/dL Creatinine 0.92 (0.66-1.25) mg/dL Estimated GFR > 60.0 ML/MIN Glucose 165 H (74-106) mg/dL Calcium 8.4 (8.4-10.2) mg/dL Magnesium (1.6-2.3) mg/dL Total Bilirubin 1.60 H (0.2-1.3) mg/dL AST 90 H (17-59) U/L ALT 50 (0-50) U/L Alkaline Phosphatase 122 (38-126) U/L Serum Total Protein 7.8 (6.3-8.2) g/dL Albumin 4.6 (3.5-5.0) g/dL Amylase (30-110) U/L Lipase (23-300) U/L Urinalys Dipstick Clnc Urine Color (YELLOW) Urine Appearance (CLEAR) Urine pH (5-6) Ur Specific [place] (1.005-1.025) POC Urine Protein Conf (Negative) Urine Ketones (NEGATIVE) Urine Nitrite (NEGATIVE) Urine Bilirubin (NEGATIVE) Urine Urobilinogen (0-1) mg/dL Urine Leukocytes (NEGATIVE) Urine WBC (Auto) (0-5) /HPF Urine RBC (Auto) (0-2) /HPF U Hyaline Cast (Auto) (0-2) /LPF U Epithel Cells (Auto) (FEW) /HPF Urine Bacteria (Auto) (NEGATIVE) /HPF Urine RBC (0-5) [place]/ul Urine Mucus (Auto) (NEGATIVE) /HPF Ur Culture Indicated? Urine Glucose (NEGATIVE) mg/dL Salicylates < 1.0 L (2-20) mg/dL Urine Opiates Level (NEGATIVE) Ur Methadone (NEGATIVE) Acetaminophen < 10 L (10-30) ug/ml Urine Barbiturates (NEGATIVE) Ur Phencyclidine (PCP) (NEGATIVE) Urine Amphetamine (NEGATIVE) U Benzodiazepine Level (NEGATIVE) Urine Cocaine (NEGATIVE) Urine Marijuana (THC) (NEGATIVE) Ethyl Alcohol 17 H (0-10) mg/dL Influenza Type A Ag NEGATIVE (NEGATIVE) Influenza Type B Ag NEGATIVE (NEGATIVE) RSV (PCR) NEGATIVE (Negative) SARS-CoV-2 (PCR) NEGATIVE (NEGATIVE) Slides for Path Review YES 06/05/22 06/05/22 06/05/22 Range/Units 12:39 12:39 13:53 WBC (4.0-10.5) x10^3/uL RBC (4.1-5.6) x10^6/uL Hgb (12.5-18.0) g/dL Hct (42-50) % MCV (78-100) fL MCH (26-32) pg MCHC (32-36) g/dL RDW (11.5-14.0) % Plt Count (150-450) x10^3/uL MPV (7.5-11.0) fL Gran % (36.0-66.0) % Immature Gran % (Auto) (0.00-0.4) % Nucleat RBC Rel Count (0.00-0.1) % Eos # (Auto) (0-0.5) x10^3/uL Immature Gran # (Auto) (0.00-0.03) x10^3u/L Absolute Lymphs (auto) (1.0-4.6) x10^3/uL Absolute Monos (auto) (0.0-1.3) x10^3/uL Absolute Nucleated RBC (0.00-0.01) x10^3u/L Lymphocytes % (24.0-44.0) % Monocytes % (0.0-12.0) % Eosinophils % (0.00-5.0) % Basophils % (0.0-0.4) % Absolute Granulocytes (1.4-6.9) x10^3/uL Basophils # (0-0.4) x10^3/uL Sodium (137-145) mmol/L Potassium (3.5-5.1) mmol/L Chloride (98-107) mmol/L Carbon Dioxide (22-30) mmol/L Anion Gap (5-15) MEQ/L BUN (9-20) mg/dL Creatinine (0.66-1.25) mg/dL Estimated GFR ML/MIN Glucose (74-106) mg/dL Calcium (8.4-10.2) mg/dL Magnesium (1.6-2.3) mg/dL Total Bilirubin (0.2-1.3) mg/dL AST (17-59) U/L ALT (0-50) U/L Alkaline Phosphatase (38-126) U/L Serum Total Protein (6.3-8.2) g/dL Albumin (3.5-5.0) g/dL Amylase 39 (30-110) U/L Lipase 290 (23-300) U/L Urinalys Dipstick Clnc MAIN LAB Urine Color MARYLU (YELLOW) Urine Appearance CLEAR (CLEAR) Urine pH 5.5 (5-6) Ur Specific [place] 1.020 (1.005-1.025) POC Urine Protein Conf 30 A (Negative) Urine Ketones TRACE A (NEGATIVE) Urine Nitrite NEGATIVE (NEGATIVE) Urine Bilirubin SMALL A (NEGATIVE) Urine Urobilinogen >=8.0 A (0-1) mg/dL Urine Leukocytes NEGATIVE (NEGATIVE) Urine WBC (Auto) 0-2 (0-5) /HPF Urine RBC (Auto) NONE (0-2) /HPF U Hyaline Cast (Auto) 11-25 A (0-2) /LPF U Epithel Cells (Auto) RARE (FEW) /HPF Urine Bacteria (Auto) RARE (NEGATIVE) /HPF Urine RBC NEGATIVE (0-5) [place]/ul Urine Mucus (Auto) SLIGHT A (NEGATIVE) /HPF Ur Culture Indicated? NO Urine Glucose 100 A (NEGATIVE) mg/dL Salicylates (2-20) mg/dL Urine Opiates Level NEGATIVE (NEGATIVE) Ur Methadone NEGATIVE (NEGATIVE) Acetaminophen (10-30) ug/ml Urine Barbiturates NEGATIVE (NEGATIVE) Ur Phencyclidine (PCP) NEGATIVE (NEGATIVE) Urine Amphetamine NEGATIVE (NEGATIVE) U Benzodiazepine Level NEGATIVE (NEGATIVE) Urine Cocaine NEGATIVE (NEGATIVE) Urine Marijuana (THC) NEGATIVE (NEGATIVE) Ethyl Alcohol (0-10) mg/dL Influenza Type A Ag (NEGATIVE) Influenza Type B Ag (NEGATIVE) RSV (PCR) (Negative) SARS-CoV-2 (PCR) (NEGATIVE) Slides for Path Review 06/05/22 06/05/22 06/06/22 Range/Units 13:57 19:53 04:40 WBC 4.4 (4.0-10.5) x10^3/uL RBC 3.87 L (4.1-5.6) x10^6/uL Hgb 12.4 L (12.5-18.0) g/dL Hct 33.7 L (42-50) % MCV 87.1 (78-100) fL MCH 32.0 (26-32) pg MCHC 36.8 H (32-36) g/dL RDW 11.1 L (11.5-14.0) % Plt Count 97 L (150-450) x10^3/uL MPV 12.4 H (7.5-11.0) fL Gran % 51.9 (36.0-66.0) % Immature Gran % (Auto) 0.5 H (0.00-0.4) % Nucleat RBC Rel Count 0.0 (0.00-0.1) % Eos # (Auto) 0.02 (0-0.5) x10^3/uL Immature Gran # (Auto) 0.02 (0.00-0.03) x10^3u/L Absolute Lymphs (auto) 1.55 (1.0-4.6) x10^3/uL Absolute Monos (auto) 0.50 (0.0-1.3) x10^3/uL Absolute Nucleated RBC 0.00 (0.00-0.01) x10^3u/L Lymphocytes % 35.1 (24.0-44.0) % Monocytes % 11.3 (0.0-12.0) % Eosinophils % 0.5 (0.00-5.0) % Basophils % 0.7 (0.0-0.4) % Absolute Granulocytes 2.29 (1.4-6.9) x10^3/uL Basophils # 0.03 (0-0.4) x10^3/uL Sodium (137-145) mmol/L Potassium 3.4 L D (3.5-5.1) mmol/L Chloride (98-107) mmol/L Carbon Dioxide (22-30) mmol/L Anion Gap (5-15) MEQ/L BUN (9-20) mg/dL Creatinine (0.66-1.25) mg/dL Estimated GFR ML/MIN Glucose (74-106) mg/dL Calcium (8.4-10.2) mg/dL Magnesium 1.0 L* (1.6-2.3) mg/dL Total Bilirubin (0.2-1.3) mg/dL AST (17-59) U/L ALT (0-50) U/L Alkaline Phosphatase (38-126) U/L Serum Total Protein (6.3-8.2) g/dL Albumin (3.5-5.0) g/dL Amylase (30-110) U/L Lipase (23-300) U/L Urinalys Dipstick Clnc Urine Color (YELLOW) Urine Appearance (CLEAR) Urine pH (5-6) Ur Specific [place] (1.005-1.025) POC Urine Protein Conf (Negative) Urine Ketones (NEGATIVE) Urine Nitrite (NEGATIVE) Urine Bilirubin (NEGATIVE) Urine Urobilinogen (0-1) mg/dL Urine Leukocytes (NEGATIVE) Urine WBC (Auto) (0-5) /HPF Urine RBC (Auto) (0-2) /HPF U Hyaline Cast (Auto) (0-2) /LPF U Epithel Cells (Auto) (FEW) /HPF Urine Bacteria (Auto) (NEGATIVE) /HPF Urine RBC (0-5) [place]/ul Urine Mucus (Auto) (NEGATIVE) /HPF Ur Culture Indicated? Urine Glucose (NEGATIVE) mg/dL Salicylates (2-20) mg/dL Urine Opiates Level (NEGATIVE) Ur Methadone (NEGATIVE) Acetaminophen (10-30) ug/ml Urine Barbiturates (NEGATIVE) Ur Phencyclidine (PCP) (NEGATIVE) Urine Amphetamine (NEGATIVE) U Benzodiazepine Level (NEGATIVE) Urine Cocaine (NEGATIVE) Urine Marijuana (THC) (NEGATIVE) Ethyl Alcohol (0-10) mg/dL Influenza Type A Ag (NEGATIVE) Influenza Type B Ag (NEGATIVE) RSV (PCR) (Negative) SARS-CoV-2 (PCR) (NEGATIVE) Slides for Path Review 06/06/22 06/06/22 Range/Units 04:40 04:40 WBC (4.0-10.5) x10^3/uL RBC (4.1-5.6) x10^6/uL Hgb (12.5-18.0) g/dL Hct (42-50) % MCV (78-100) fL MCH (26-32) pg MCHC (32-36) g/dL RDW (11.5-14.0) % Plt Count (150-450) x10^3/uL MPV (7.5-11.0) fL Gran % (36.0-66.0) % Immature Gran % (Auto) (0.00-0.4) % Nucleat RBC Rel Count (0.00-0.1) % Eos # (Auto) (0-0.5) x10^3/uL Immature Gran # (Auto) (0.00-0.03) x10^3u/L Absolute Lymphs (auto) (1.0-4.6) x10^3/uL Absolute Monos (auto) (0.0-1.3) x10^3/uL Absolute Nucleated RBC (0.00-0.01) x10^3u/L Lymphocytes % (24.0-44.0) % Monocytes % (0.0-12.0) % Eosinophils % (0.00-5.0) % Basophils % (0.0-0.4) % Absolute Granulocytes (1.4-6.9) x10^3/uL Basophils # (0-0.4) x10^3/uL Sodium 129 L (137-145) mmol/L Potassium 2.9 L* (3.5-5.1) mmol/L Chloride 97 L D (98-107) mmol/L Carbon Dioxide 28 (22-30) mmol/L Anion Gap 6.2 (5-15) MEQ/L BUN 4 L (9-20) mg/dL Creatinine 0.84 (0.66-1.25) mg/dL Estimated GFR > 60.0 ML/MIN Glucose 100 (74-106) mg/dL Calcium 7.5 L (8.4-10.2) mg/dL Magnesium 1.5 L (1.6-2.3) mg/dL Total Bilirubin 1.30 (0.2-1.3) mg/dL AST 73 H (17-59) U/L ALT 40 (0-50) U/L Alkaline Phosphatase 96 (38-126) U/L Serum Total Protein 5.9 L (6.3-8.2) g/dL Albumin 3.3 L (3.5-5.0) g/dL Amylase (30-110) U/L Lipase (23-300) U/L Urinalys Dipstick Clnc Urine Color (YELLOW) Urine Appearance (CLEAR) Urine pH (5-6) Ur Specific [place] (1.005-1.025) POC Urine Protein Conf (Negative) Urine Ketones (NEGATIVE) Urine Nitrite (NEGATIVE) Urine Bilirubin (NEGATIVE) Urine Urobilinogen (0-1) mg/dL Urine Leukocytes (NEGATIVE) Urine WBC (Auto) (0-5) /HPF Urine RBC (Auto) (0-2) /HPF U Hyaline Cast (Auto) (0-2) /LPF U Epithel Cells (Auto) (FEW) /HPF Urine Bacteria (Auto) (NEGATIVE) /HPF Urine RBC (0-5) [place]/ul Urine Mucus (Auto) (NEGATIVE) /HPF Ur Culture Indicated? Urine Glucose (NEGATIVE) mg/dL Salicylates (2-20) mg/dL Urine Opiates Level (NEGATIVE) Ur Methadone (NEGATIVE) Acetaminophen (10-30) ug/ml Urine Barbiturates (NEGATIVE) Ur Phencyclidine (PCP) (NEGATIVE) Urine Amphetamine (NEGATIVE) U Benzodiazepine Level (NEGATIVE) Urine Cocaine (NEGATIVE) Urine Marijuana (THC) (NEGATIVE) Ethyl Alcohol (0-10) mg/dL Influenza Type A Ag (NEGATIVE) Influenza Type B Ag (NEGATIVE) RSV (PCR) (Negative) SARS-CoV-2 (PCR) (NEGATIVE) Slides for Path Review Assessment/Plan (1) Vomiting and diarrhea Current Visit: Yes Status: Acute Assessment & Plan: continue IV fluid replacement, will correct electrolyte abnormalities Code(s): R11.10 - VOMITING, UNSPECIFIED; R19.7 - DIARRHEA, UNSPECIFIED (2) Chronic alcoholism Current Visit: Yes Status: Acute Assessment & Plan: patient is interested in further treatment at this time at a treatment center Code(s): F10.20 - ALCOHOL DEPENDENCE, UNCOMPLICATED (3) Hypokalemia Current Visit: Yes Status: Acute Assessment & Plan: replace mag with 2g rider this am then replace potassium with protocol Code(s): E87.6 - HYPOKALEMIA
[2022-06-06] MEDS ORDERED: PHARMACY DOSING REQUEST MC ONE (08:32)
[2022-06-06] MEDS: BUSPAR 5 MG PO SCH (08:56)
[2022-06-06] MEDS: Lexapro PO SCH (08:56)
[2022-06-06] MEDS: THERAGRAN MULTIVITAMIN PO SCH (08:56)
[2022-06-06] MEDS: Klor Con PO SCH ×3 (08:56→12:29)
[2022-06-06] MEDS: VITAMIN B-1 100 MG PO SCH (08:57)
[2022-06-06] MEDS: Coreg PO SCH ×2 (08:57→21:11)
[2022-06-06] MEDS: FOLATE 1 MG PO SCH (08:57)
[2022-06-06] MEDS: PROTONIX 40 MG IV IV SCH (08:57)
[2022-06-06 09:37] LABS: Slide Review 1 YES
[2022-06-06] MEDS ORDERED: IMODIUM 2 MG PO PRN (21:05)
[2022-06-07 04:55] LABS: Absolute Neutrophil Ct (ANC) 1.82 x10^3/uL (1.4-6.9); Basophil (Absolute #) 0.03 x10^3/uL (0-0.4); Eosinophil % 0.7 % (0.00-5.0); Eosinophil (Absolute #) 0.03 x10^3/uL (0-0.5); Hematocrit 34.5 % (42-50); Hemoglobin 11.8 g/dL (12.5-18.0); Lymphocyte (Absolute #) 1.71 x10^3/uL (1.0-4.6); Lymphocytes % 42.3 % (24.0-44.0); Mean Cell Volume 92.5 fL (78-100); Mean Corpuscular Hemoglobin 31.6 pg (26-32); Mean Corpuscular Hgb Concent. 34.2 g/dL (32-36); Mean Platelet Volume 11.4 fL (7.5-11.0); Monocyte (Absolute #) 0.43 x10^3/uL (0.0-1.3); Monocytes % 10.6 % (0.0-12.0); Neutrophil % 45.2 % (36.0-66.0); Platelet Count 110 x10^3/uL (150-450); Red Blood Count 3.73 x10^6/uL (4.1-5.6); Red Cell Distribution Width 11.1 % (11.5-14.0)
[2022-06-07 05:24] LABS: ALBUMIN 3.3 g/dL (3.5-5.0); ALKALINE PHOSPHATASE 87 U/L (38-126); ANION GAP 7.6 MEQ/L (5-15); BLOOD UREA NITROGEN 4 mg/dL (9-20); CHLORIDE 106 mmol/L (98-107); Carbon Dioxide 27 mmol/L (22-30); EST GLOMERULAR FILTRATION RATE > 60.0 ML/MIN; Glucose 88 mg/dL (74-106); MAGNESIUM 2.1 mg/dL (1.6-2.3); Potassium 4.1 mmol/L (3.5-5.1); SGOT/AST 81 U/L (17-59); SGPT/ALT 45 U/L (0-50); SODIUM 136 mmol/L (137-145); Total Protein 5.9 g/dL (6.3-8.2)
[2022-06-07] MEDS: Sodium Chloride 0.9% W/ 20 mEq KCl/LITER 1,000 ML IV SCH (07:47)
--- NOTE | 2022-06-07 08:08 | PCM.DS ---
Discharge Summary Date of Admission: 06/05/22 14:29 Admitting Physician: RANCHO RAIN Primary Care Provider: NO FAMILY DOCTOR Allergies Allergies No Known Drug Allergies Allergy (Verified 06/05/22 11:42) Hospital Summary - Hospital Course Hospital Course: nausea and vomiting have resolved since admission, patient is feeling much better and electrolyte abnormalities are corrected. he is agreeabe to alcohol treatment, awaiting bed in [facility] - Vitals & Intake/Output Vital Signs: Vital Signs Temperature 97.5 F 06/07/22 07:50 Pulse Rate 72 06/07/22 07:50 Respiratory Rate 18 06/07/22 07:50 Blood Pressure 123/72 06/07/22 07:50 O2 Sat by Pulse Oximetry 97 06/07/22 07:50 Intake & Output: Intake & Output 06/04/22 06/05/22 06/06/22 06/07/22 11:59 11:59 11:59 11:59 Intake Total 2028 3701 Balance 2028 370 Weight 89.403 kg 91.5 kg 93.7 kg - Lab Result Diagrams: 06/07/22 04:20 06/07/22 04:20 Lab Results-Last 24 Hrs: Lab Results-Last 24 Hours 06/06/22 06/06/22 06/07/22 Range/Units 04:40 15:35 04:20 WBC 4.0 (4.0-10.5) x10^3/uL RBC 3.73 L (4.1-5.6) x10^6/uL Hgb 11.8 L (12.5-18.0) g/dL Hct 34.5 L (42-50) % MCV 92.5 D (78-100) fL MCH 31.6 (26-32) pg MCHC 34.2 (32-36) g/dL RDW 11.1 L (11.5-14.0) % Plt Count 110 L (150-450) x10^3/uL MPV 11.4 H (7.5-11.0) fL Gran % 45.2 (36.0-66.0) % Immature Gran % (Auto) 0.5 H (0.00-0.4) % Nucleat RBC Rel Count 0.0 (0.00-0.1) % Eos # (Auto) 0.03 (0-0.5) x10^3/uL Immature Gran # (Auto) 0.02 (0.00-0.03) x10^3u/L Absolute Lymphs (auto) 1.71 (1.0-4.6) x10^3/uL Absolute Monos (auto) 0.43 (0.0-1.3) x10^3/uL Absolute Nucleated RBC 0.00 (0.00-0.01) x10^3u/L Lymphocytes % 42.3 (24.0-44.0) % Monocytes % 10.6 (0.0-12.0) % Eosinophils % 0.7 (0.00-5.0) % Basophils % 0.7 (0.0-0.4) % Absolute Granulocytes 1.82 (1.4-6.9) x10^3/uL Basophils # 0.03 (0-0.4) x10^3/uL Sodium (137-145) mmol/L Potassium 3.4 L (3.5-5.1) mmol/L Chloride (98-107) mmol/L Carbon Dioxide (22-30) mmol/L Anion Gap (5-15) MEQ/L BUN (9-20) mg/dL Creatinine (0.66-1.25) mg/dL Estimated GFR ML/MIN Glucose (74-106) mg/dL Calcium (8.4-10.2) mg/dL Magnesium (1.6-2.3) mg/dL Total Bilirubin (0.2-1.3) mg/dL AST (17-59) U/L ALT (0-50) U/L Alkaline Phosphatase (38-126) U/L Serum Total Protein (6.3-8.2) g/dL Albumin (3.5-5.0) g/dL Slides for Path Review YES 06/07/22 Range/Units 04:20 WBC (4.0-10.5) x10^3/uL RBC (4.1-5.6) x10^6/uL Hgb (12.5-18.0) g/dL Hct (42-50) % MCV (78-100) fL MCH (26-32) pg MCHC (32-36) g/dL RDW (11.5-14.0) % Plt Count (150-450) x10^3/uL MPV (7.5-11.0) fL Gran % (36.0-66.0) % Immature Gran % (Auto) (0.00-0.4) % Nucleat RBC Rel Count (0.00-0.1) % Eos # (Auto) (0-0.5) x10^3/uL Immature Gran # (Auto) (0.00-0.03) x10^3u/L Absolute Lymphs (auto) (1.0-4.6) x10^3/uL Absolute Monos (auto) (0.0-1.3) x10^3/uL Absolute Nucleated RBC (0.00-0.01) x10^3u/L Lymphocytes % (24.0-44.0) % Monocytes % (0.0-12.0) % Eosinophils % (0.00-5.0) % Basophils % (0.0-0.4) % Absolute Granulocytes (1.4-6.9) x10^3/uL Basophils # (0-0.4) x10^3/uL Sodium 136 L D (137-145) mmol/L Potassium 4.1 D (3.5-5.1) mmol/L Chloride 106 (98-107) mmol/L Carbon Dioxide 27 (22-30) mmol/L Anion Gap 7.6 (5-15) MEQ/L BUN 4 L (9-20) mg/dL Creatinine 0.90 (0.66-1.25) mg/dL Estimated GFR > 60.0 ML/MIN Glucose 88 (74-106) mg/dL Calcium 8.0 L (8.4-10.2) mg/dL Magnesium 2.1 (1.6-2.3) mg/dL Total Bilirubin 0.70 (0.2-1.3) mg/dL AST 81 H (17-59) U/L ALT 45 (0-50) U/L Alkaline Phosphatase 87 (38-126) U/L Serum Total Protein 5.9 L (6.3-8.2) g/dL Albumin 3.3 L (3.5-5.0) g/dL Slides for Path Review Discharge Exam General Appearance: no apparent distress Neurologic Exam: alert, oriented x 3 Respiratory Exam: normal breath sounds, lungs clear, No respiratory distress Cardiovascular Exam: regular rate/rhythm, normal heart sounds Gastrointestinal/Abdomen Exam: soft, No tenderness, No mass Skin Exam: normal color, warm, dry Final Diagnosis/Problem List - Final Discharge Diagnosis/Problem (1) Vomiting and diarrhea Current Visit: Yes Status: Acute Assessment & Plan: resolved, likely viral gastroenteritis, recovered Code(s): R11.10 - VOMITING, UNSPECIFIED; R19.7 - DIARRHEA, UNSPECIFIED (2) Chronic alcoholism Current Visit: Yes Status: Acute Code(s): F10.20 - ALCOHOL DEPENDENCE, U NCOMPLICATED (3) Hypokalemia Current Visit: Yes Status: Acute Assessment & Plan: replaced from vomiting/diarrhea, patient is medically clear for discharge to alcohol treatment facility at this time Code(s): E87.6 - HYPOKALEMIA - Discharge Disposition: XFER OTHER Condition: Stable Prescriptions: New Thiamine HCl 100 mg [Vitamin B-1 100 mg] 100 mg PO DAILY #30 tablet Continue Escitalopram Oxalate 20 mg PO DAILY Folic Acid 1 mg PO DAILY Carvedilol [Coreg ] 6.25 mg PO BID Buspirone HCl 5 mg PO DAILY Follow up with: DOCTOR,NO FAMILY [Primary Care Provider] -
[2022-06-07] MEDS: THERAGRAN MULTIVITAMIN PO SCH (10:05)
[2022-06-07] MEDS: FOLATE 1 MG PO SCH (10:05)
[2022-06-07] MEDS: PROTONIX 40 MG IV IV SCH (10:05)
[2022-06-07] MEDS: Coreg PO SCH (10:05)
[2022-06-07] MEDS: VITAMIN B-1 100 MG PO SCH (10:05)
[2022-06-07] MEDS: Lexapro PO SCH (10:05)
[2022-06-07] MEDS: BUSPAR 5 MG PO SCH (10:05)
[2022-06-07 11:40] VITALS: BP 121/82; PULSE 86; O2SAT 96
== END 2022-06-07 12:50 | disposition home or self-care (01) ==
LOC: ED 11:34 → MED SURG 14:29
PROVIDERS: ADMIT Family Medicine; ATTEND Family Medicine
DX: R11.10 Vomiting, unspecified (principal); R19.7 Diarrhea, unspecified; F10.20 Alcohol dependence, uncomplicated; E87.6 Hypokalemia; I10 Essential (primary) hypertension; Z79.899 Other long term (current) drug therapy; Z20.828 Contact with and (suspected) exposure to other viral communicable diseases
CPT/HCPCS: 0241U; 36000; 36415; 80053; 80307; 81015; 82150; 83690; 83735; 84132; 85025; 93005; 96360; 96361; 96365; 96374; 96375; 99285; G0480; 93268; J2060; J2405; J3475; J3480; A9270-GY; G0378

== ENCOUNTER 2022-07-02 10:52 | Emergency (ER) | payer OTHER ==
--- NOTE | 2022-07-02 10:55 | ERPHSYRPT ---
- History of Present Illness Time Seen by Provider: 07/02/22 10:55 Source: patient Exam Limitations: no limitations Physician History: This is a 27-year-old white male who was seen here in the emergency department for the same issue approximately 1 month ago. He does have a history of hypertension and some other psychological issues but he is not taking his medication. He has a long history of alcohol abuse and has had episodes of alcohol withdrawal in the past. He is noncompliant with his medication and noncompliant with past plans to help him with his alcoholism. He was admitted on 06/05/2022 to our facility and was discharged to home at his request on 05/21 because he no longer desired to go to an alcohol treatment center. Today, he states that he has been drinking for several days and will consider going to an alcohol treatment center but he is not definite yet. He denies being suicidal or homicidal at this time. He feels as though he is anxious, he has been vomiting despite drinking alcohol in the last few days. He has had no hematemesis. He has had no rectal bleeding. He has no chest pain at this time. He denies shortness of breath he denies abdominal pain. He was brought into the emergency department by his mother Timing/Duration: other (Chronic recurrent issue) Severity: moderate Associated Symptoms: nausea, vomiting, loss of appetite, weakness, No abdominal pain, No shortness of breath, No chest pain Allergies/Adverse Reactions: No Known Drug Allergies Allergy (Verified 07/02/22 11:07) Home Medications: Buspirone HCl 15 mg PO BID 06/05/22 [History] Folic Acid 1 mg PO DAILY 06/05/22 [History] Hydroxyzine HCl 25 mg [Atarax 25 mg] 50 mg PO Q6H PRN PRN 07/02/22 [History] Lisinopril 10 mg [Zestril 10 MG] 1 tab PO DAILY 07/02/22 [History] Propranolol HCl [Inderal ] 10 mg PO BID 07/02/22 [History] Thiamine HCl 100 mg [Vitamin B-1 100 mg] 1 tab PO DAILY 07/02/22 [History] Hx Tetanus, Diphtheria Vaccination/Date Given: Yes Hx Influenza Vaccination/Date Given: No Hx Pneumococcal Vaccination/Date Given: No Travel Risk - International Travel Have you traveled outside of the country in past 3 weeks: No - Coronavirus Screening Are you exhibiting any of the following symptoms?: No Close contact with a COVID-19 positive Pt in past 14-21 Days: No - Vaccine Status Have you recieved a Covid-19 vaccination: No E Commerce Strategist: Unknown - Vaccination Dates Dates if Unknown: [place] - Review of Systems Constitutional: Weakness Eyes: No Symptoms Ears, Nose, & Throat: No Symptoms Respiratory: No Symptoms Cardiac: No Symptoms Abdominal/Gastrointestinal: Nausea, Vomiting Genitourinary Symptoms: No Symptoms Musculoskeletal: No Symptoms Neurological: No Symptoms Psychological: Alcohol Abuse, Anxiety, Depression Endocrine: No Symptoms Hematologic/Lymphatic: No Symptoms Immunological/Allergic: No Symptoms All Other Systems: Reviewed and Negative - Past Medical History Pertinent Past Medical History: Yes Neurological History: No Pertinent History ENT History: No Pertinent History Cardiac History: Hypertension Respiratory History: No Pertinent History Endocrine Medical History: No Pertinent History Musculoskeletal History: Other GI Medical History: No Pertinent History History: No Pertinent History Psycho-Social History: Other Male Reproductive Disorders: No Pertinent History Other Medical History: alcohol abuse, herniated disc L4-L5 - Past Surgical History Past Surgical History: Yes Neuro Surgical History: No Pertinent History Cardiac: No Pertinent History Respiratory: No Pertinent History Gastrointestinal: No Pertinent History Genitourinary: No Pertinent History Musculoskeletal: Other Male Surgical History: No Pertinent History Other Surgical History: Lower back L4-L5 - Social History Smoking Status: Former smoker Exposure to second hand smoke: No Drug Use: none Patient Lives Alone: No Significant Family History: no pertinent family hx - Nursing Vital Signs Nursing Vital Signs: Initial Vital Signs Temperature 97 F 07/02/22 10:53 Pulse Rate 124 H 07/02/22 10:53 Respiratory Rate 18 07/02/22 10:53 Blood Pressure 142/113 07/02/22 10:53 O2 Sat by Pulse Oximetry 97 07/02/22 10:53 Pain Scale Pain Intensity 4 - Physical Exam General Appearance: mild distress, alert, anxiety Eye Exam: PERRL/EOMI, eyes nml inspection Ears, Nose, Throat Exam: normal ENT inspection, dry mucous membranes Neck Exam: normal inspection, non-tender, supple, full range of motion Respiratory Exam: normal breath sounds, lungs clear, airway intact, No chest tenderness, No respiratory distress Cardiovascular Exam: tachycardia Gastrointestinal/Abdomen Exam: soft, normal bowel sounds, No tenderness, No guarding Rectal Exam: not done Back Exam: normal inspection, normal range of motion, No CVA tenderness, No vertebral tenderness Extremity Exam: normal inspection, normal range of motion, pelvis stable Neurologic Exam: alert, oriented x 3, cooperative, rn lactation consultant II-XII nml as tested, nml cerebellar function, nml station & gait, sensation nml, other (He verbalizes that he has had some visual hallucinations) Skin Exam: normal color, warm, dry Lymphatic Exam: No adenopathy SpO2 Interpretation: normal O2 Delivery: Room Air - Course Nursing assessment & vital signs reviewed: Yes EKG Interpreted by Me: RATE (129), Sinus Tach, NORMAL AXIS, NORMAL INTERVALS, NORMAL QRS, Other (No acute ischemic changes on today's EKG) Ordered Tests: Active Orders 24 hr Category Date Time Status EKG-ER Only STAT Care 07/02/22 10:56 Active IV Insertion STAT Care 07/02/22 10:56 Active Telemetry q4h Care 07/02/22 11:56 Active ACETAMINOPHEN Stat Lab 07/02/22 11:20 Completed CBC W DIFF Stat Lab 07/02/22 11:20 Completed CMP Stat Lab 07/02/22 11:20 Completed CULTURE,URINE Stat Lab 07/02/22 11:06 Received ETHYL ALCOHOL Stat Lab 07/02/22 11:20 Completed MAGNESIUM Stat Lab 07/02/22 11:06 Completed SALICYLATE Stat Lab 07/02/22 11:20 Completed UA W/RFX CULTURE Stat Lab 07/02/22 11:06 Completed Urine Triage Profile Stat Lab 07/02/22 11:06 Completed Medication Summary Generic Name Dose Route Start Last Admin Trade Name Freq PRN Reason Stop Dose Admin Potassium Chloride 20 meq in 100 mls @ 50 mls/hr 07/02/22 12:00 07/02/22 13:58 Potassium Chloride 20 Meq In Water 100ml IV 07/02/22 15:59 50 mls/hr Q2H DION Administration Discontinued Medications Generic Name Dose Route Start Last Admin Trade Name Freq PRN Reason Stop Dose Admin Enalaprilat 1.25 mg 07/02/22 14:05 07/02/22 14:09 Enalaprilat 2.5 Mg Injection IV 07/02/22 14:06 1.25 mg STAT ONE Administration Enalaprilat Confirm 07/02/22 14:07 Enalaprilat 2.5 Mg Injection Administered 07/02/22 14:08 Dose 2.5 mg IV .STK-MED ONE Sodium Chloride 1,000 mls @ 999 mls/hr 07/02/22 10:56 07/02/22 13:17 Sodium Chloride 0.9% 1000 Ml IV 07/02/22 11:56 Infused .Q1H1M STA Infusion Sodium Chloride Confirm 07/02/22 11:32 Sodium Chloride 0.9% 1000 Ml Administered 07/02/22 11:33 Dose 1,000 mls @ ud .ROUTE .STK-MED ONE Sodium Chloride 1,000 mls @ 999 mls/hr 07/02/22 13:13 07/02/22 15:06 Sodium Chloride 0.9% 1000 Ml IV 07/02/22 14:13 Infused .Q1H1M STA Infusion Magnesium Sulfate/Dextrose 100 mls @ 200 mls/hr 07/02/22 13:14 07/02/22 16:57 Magnesium 1 Gm / 100 Ml D5w IV 07/02/22 13:43 200 mls/hr STAT ONE Administration Sodium Chloride Confirm 07/02/22 13:20 Sodium Chloride 0.9% 1000 Ml Administered 07/02/22 13:21 Dose 1,000 mls @ ud .ROUTE .STK-MED ONE Lorazepam 1 mg 07/02/22 10:56 07/02/22 11:42 Lorazepam 2 Mg/1 Ml 2 Mg Vial IV 07/02/22 10:57 1 mg STAT ONE Administration Lorazepam Confirm 07/02/22 11:32 Lorazepam 2 Mg/1 Ml 2 Mg Vial Administered 07/02/22 11:33 Dose 2 mg .ROUTE .STK-MED ONE Ondansetron HCl 4 mg 07/02/22 10:56 07/02/22 11:37 Ondansetron Hcl 4 Mg/2 Ml Vial IV 07/02/22 10:57 4 mg STAT ONE Administration Ondansetron HCl Confirm 07/02/22 11:31 Ondansetron Hcl 4 Mg/2 Ml Vial Administered 07/02/22 11:32 Dose 4 mg .ROUTE .STK-MED ONE Pantoprazole Sodium 40 mg 07/02/22 10:57 07/02/22 11:42 Pantoprazole 40 Mg Vial IV 07/02/22 10:58 40 mg STAT ONE Administration Pantoprazole Sodium Confirm 07/02/22 11:32 Pantoprazole 40 Mg Vial Administered 07/02/22 11:33 Dose 40 mg IV .STK-MED ONE Lab/Rad Data: Laboratory Result Diagrams 07/02/22 11:20 07/02/22 11:20 Laboratory Results 07/02/22 07/02/22 07/02/22 Range/Units 11:20 11:20 11:20 WBC 7.5 (4.0-10.5) x10^3/uL RBC 5.51 (4.1-5.6) x10^6/uL Hgb 17.1 (12.5-18.0) g/dL Hct 46.8 (42-50) % MCV 84.9 (78-100) fL MCH 31.0 (26-32) pg MCHC 36.5 H (32-36) g/dL RDW 10.9 L (11.5-14.0) % Plt Count 161 (150-450) x10^3/uL MPV 11.1 H (7.5-11.0) fL Gran % 69.2 H (36.0-66.0) % Immature Gran % (Auto) 0.3 (0.00-0.4) % Nucleat RBC Rel Count 0.0 (0.00-0.1) % Eos # (Auto) 0 (0-0.5) x10^3/uL Immature Gran # (Auto) 0.02 (0.00-0.03) x10^3u/L Absolute Lymphs (auto) 1.78 (1.0-4.6) x10^3/uL Absolute Monos (auto) 0.50 (0.0-1.3) x10^3/uL Absolute Nucleated RBC 0.00 (0.00-0.01) x10^3u/L Lymphocytes % 23.7 L (24.0-44.0) % Monocytes % 6.7 (0.0-12.0) % Eosinophils % 0.0 (0.00-5.0) % Basophils % 0.1 (0.0-0.4) % Absolute Granulocytes 5.20 (1.4-6.9) x10^3/uL Basophils # 0.01 (0-0.4) x10^3/uL Sodium 127 L (137-145) mmol/L Potassium 2.8 L* (3.5-5.1) mmol/L Chloride 80 L (98-107) mmol/L Carbon Dioxide 36 H (22-30) mmol/L Anion Gap 13.7 (5-15) MEQ/L BUN 7 L (9-20) mg/dL Creatinine 1.16 (0.66-1.25) mg/dL Estimated GFR > 60.0 ML/MIN Glucose 155 H (74-106) mg/dL Calcium 9.2 (8.4-10.2) mg/dL Magnesium (1.6-2.3) mg/dL Total Bilirubin 3.30 H (0.2-1.3) mg/dL AST 238 H (17-59) U/L ALT 156 H (0-50) U/L Alkaline Phosphatase 127 H (38-126) U/L Serum Total Protein 8.0 (6.3-8.2) g/dL Albumin 4.8 (3.5-5.0) g/dL Urinalys Dipstick Clnc Urine Color (YELLOW) Urine Appearance (CLEAR) Urine pH (5-6) Ur Specific [place] (1.005-1.025) POC Urine Protein Conf (Negative) Urine Ketones (NEGATIVE) Urine Nitrite (NEGATIVE) Urine Bilirubin (NEGATIVE) Urine Urobilinogen (0-1) mg/dL Urine Leukocytes (NEGATIVE) Urine WBC (Auto) (0-5) /HPF Urine RBC (Auto) (0-2) /HPF U Hyaline Cast (Auto) (0-2) /LPF U Epithel Cells (Auto) (FEW) /HPF Urine Bacteria (Auto) (NEGATIVE) /HPF Urine RBC (0-5) [place]/ul Urine Mucus (Auto) (NEGATIVE) /HPF Ur Culture Indicated? Urine Glucose (NEGATIVE) mg/dL Salicylates < 1.0 L (2-20) mg/dL Urine Opiates Level (NEGATIVE) Ur Methadone (NEGATIVE) Acetaminophen < 10 L (10-30) ug/ml Urine Barbiturates (NEGATIVE) Ur Phencyclidine (PCP) (NEGATIVE) Urine Amphetamine (NEGATIVE) U Benzodiazepine Level (NEGATIVE) Urine Cocaine (NEGATIVE) Urine Marijuana (THC) (NEGATIVE) Ethyl Alcohol < 10 (0-10) mg/dL Influenza Type A Ag NEGATIVE (NEGATIVE) Influenza Type B Ag NEGATIVE (NEGATIVE) RSV (PCR) NEGATIVE (Negative) SARS-CoV-2 (PCR) NEGATIVE (NEGATIVE) 07/02/22 07/02/22 07/02/22 Range/Units 11:06 11:06 11:06 WBC (4.0-10.5) x10^3/uL RBC (4.1-5.6) x10^6/uL Hgb (12.5-18.0) g/dL Hct (42-50) % MCV (78-100) fL MCH (26-32) pg MCHC (32-36) g/dL RDW (11.5-14.0) % Plt Count (150-450) x10^3/uL MPV (7.5-11.0) fL Gran % (36.0-66.0) % Immature Gran % (Auto) (0.00-0.4) % Nucleat RBC Rel Count (0.00-0.1) % Eos # (Auto) (0-0.5) x10^3/uL Immature Gran # (Auto) (0.00-0.03) x10^3u/L Absolute Lymphs (auto) (1.0-4.6) x10^3/uL Absolute Monos (auto) (0.0-1.3) x10^3/uL Absolute Nucleated RBC (0.00-0.01) x10^3u/L Lymphocytes % (24.0-44.0) % Monocytes % (0.0-12.0) % Eosinophils % (0.00-5.0) % Basophils % (0.0-0.4) % Absolute Granulocytes (1.4-6.9) x10^3/uL Basophils # (0-0.4) x10^3/uL Sodium (137-145) mmol/L Potassium (3.5-5.1) mmol/L Chloride (98-107) mmol/L Carbon Dioxide (22-30) mmol/L Anion Gap (5-15) MEQ/L BUN (9-20) mg/dL Creatinine (0.66-1.25) mg/dL Estimated GFR ML/MIN Glucose (74-106) mg/dL Calcium (8.4-10.2) mg/dL Magnesium 1.5 L (1.6-2.3) mg/dL Total Bilirubin (0.2-1.3) mg/dL AST (17-59) U/L ALT (0-50) U/L Alkaline Phosphatase (38-126) U/L Serum Total Protein (6.3-8.2) g/dL Albumin (3.5-5.0) g/dL Urinalys Dipstick Clnc MAIN LAB Urine Color MARYLU (YELLOW) Urine Appearance SLIGHTLY (CLEAR) Urine pH 7.0 (5-6) Ur Specific [place] 1.015 (1.005-1.025) POC Urine Protein Conf 30 A (Negative) Urine Ketones TRACE A (NEGATIVE) Urine Nitrite POSITIVE A (NEGATIVE) Urine Bilirubin MODERATE A (NEGATIVE) Urine Urobilinogen >=8.0 A (0-1) mg/dL Urine Leukocytes NEGATIVE (NEGATIVE) Urine WBC (Auto) 6-10 A (0-5) /HPF Urine RBC (Auto) NONE (0-2) /HPF U Hyaline Cast (Auto) 3-5 A (0-2) /LPF U Epithel Cells (Auto) RARE (FEW) /HPF Urine Bacteria (Auto) RARE (NEGATIVE) /HPF Urine RBC NEGATIVE (0-5) [place]/ul Urine Mucus (Auto) SLIGHT A (NEGATIVE) /HPF Ur Culture Indicated? YES Urine Glucose 100 A (NEGATIVE) mg/dL Salicylates (2-20) mg/dL Urine Opiates Level NEGATIVE (NEGATIVE) Ur Methadone NEGATIVE (NEGATIVE) Acetaminophen (10-30) ug/ml Urine Barbiturates NEGATIVE (NEGATIVE) Ur Phencyclidine (PCP) NEGATIVE (NEGATIVE) Urine Amphetamine NEGATIVE (NEGATIVE) U Benzodiazepine Level NEGATIVE (NEGATIVE) Urine Cocaine NEGATIVE (NEGATIVE) Urine Marijuana (THC) NEGATIVE (NEGATIVE) Ethyl Alcohol (0-10) mg/dL Influenza Type A Ag (NEGATIVE) Influenza Type B Ag (NEGATIVE) RSV (PCR) (Negative) SARS-CoV-2 (PCR) (NEGATIVE) - Progress Progress: improved Progress Note: 07/02/22 16:57 Patient states that he wants to leave after he receives the potassium, magnesium and normal saline solution. He does not want to be transferred and he does not want to be admitted. He states that he will consider alcohol treatment centers but as an outpatient. He states that he is not suicidal or homicidal. He states he is feeling much better. He will sign AGAINST MEDICAL ADVICE discharge form. Counseled pt/family regarding: lab results, diagnosis, need for follow-up - Departure Departure Disposition: AMA Clinical Impression: Alcohol abuse, Dehydration, Hypokalemia, Hypomagnesemia, Chronic alcoholism, Vomiting and diarrhea Condition: Fair Critical Care Time: No Referrals: DOCTOR,NO FAMILY [Primary Care Provider] - Follow up/PCP as directed Additional Instructions: Avoid alcohol use of any kind. Avoid illicit drug use. Follow-up with your primary care provider for further evaluation and management including referral to a alcohol treatment center. Return to the emergency department if symptoms worsen. Take your medication as prescribed and return to the [facility] lab to have repeat potassium and magnesium levels drawn on 07/04/2022 Prescriptions: Ondansetron ODT 4 MG [Zofran Odt 4 mg] 4 mg PO Q6H PRN PRN #10 tablet PRN Reason: Vomiting Potassium Chloride Tab* [Klor Con] 10 meq PO DAILY #5 tab Famotidine 20 mg [Pepcid 20 MG] 20 mg PO DAILY #10 tablet
[2022-07-02] MEDS ORDERED: Ativan 2 MG/1 ML VIAL IV ONE (10:56)
[2022-07-02] MEDS ORDERED: Sodium Chloride 0.9% 1000 ML 1,000 ML IV STA ×2 (10:56→13:13)
[2022-07-02] MEDS ORDERED: Zofran 4 MG/2 ML VIAL IV ONE (10:56)
[2022-07-02] MEDS ORDERED: PROTONIX 40 MG IV IV ONE ×2 (10:57→11:32)
[2022-07-02 11:28] LABS: Epithelial Cells RARE /HPF (FEW); Mucus SLIGHT /HPF (NEGATIVE)
[2022-07-02 11:30] LABS: Appearance SLIGHTLY (CLEAR); Glucose 100 mg/dL (NEGATIVE)
[2022-07-02 11:31] LABS: Bilirubin MODERATE (NEGATIVE); Dipstick done @ ? MAIN LAB; Ketones TRACE (NEGATIVE); Nitrite POSITIVE (NEGATIVE); Protein,Urine Dip 30 (Negative); RBC NEGATIVE Ery/ul (0-5); Specific Gravity 1.015 (1.005-1.025); Urobilinogen >=8.0 mg/dL (0-1)
[2022-07-02] MEDS ORDERED: Zofran 4 MG/2 ML VIAL ONE (11:31)
[2022-07-02 11:32] LABS: Bacteria RARE /HPF (NEGATIVE); Urine Cultured Indicated? YES
[2022-07-02] MEDS ORDERED: Sodium Chloride 0.9% 1000 ML 1,000 ML ONE ×2 (11:32→13:20)
[2022-07-02] MEDS ORDERED: Ativan 2 MG/1 ML VIAL ONE (11:32)
[2022-07-02 11:34] LABS: Basophil (Absolute #) 0.01 x10^3/uL (0-0.4); Eosinophil (Absolute #) 0 x10^3/uL (0-0.5); Hematocrit 46.8 % (42-50); Hemoglobin 17.1 g/dL (12.5-18.0); Lymphocyte (Absolute #) 1.78 x10^3/uL (1.0-4.6); Lymphocytes % 23.7 % (24.0-44.0); Mean Cell Volume 84.9 fL (78-100); Mean Corpuscular Hgb Concent. 36.5 g/dL (32-36); Mean Platelet Volume 11.1 fL (7.5-11.0); Monocytes % 6.7 % (0.0-12.0); Neutrophil % 69.2 % (36.0-66.0); Platelet Count 161 x10^3/uL (150-450); Red Blood Count 5.51 x10^6/uL (4.1-5.6); Red Cell Distribution Width 10.9 % (11.5-14.0); White Blood Count 7.5 x10^3/uL (4.0-10.5)
[2022-07-02 11:42] LABS: Amphetamine,Urine NEGATIVE (NEGATIVE); Barbiturate,Urine NEGATIVE (NEGATIVE); Benzodiazepine,Urine NEGATIVE (NEGATIVE); Cocaine,Urine NEGATIVE (NEGATIVE); Methadone,Urine NEGATIVE (NEGATIVE); Opiate,Urine NEGATIVE (NEGATIVE); PCP,Urine NEGATIVE (NEGATIVE); THC,Urine NEGATIVE (NEGATIVE)
[2022-07-02 11:44] LABS: ACETAMINOPHEN < 10 ug/ml (10-30); ALBUMIN 4.8 g/dL (3.5-5.0); ALKALINE PHOSPHATASE 127 U/L (38-126); ANION GAP 13.7 MEQ/L (5-15); BLOOD UREA NITROGEN 7 mg/dL (9-20); CHLORIDE 80 mmol/L (98-107); Calcium 9.2 mg/dL (8.4-10.2); Carbon Dioxide 36 mmol/L (22-30); Creatinine 1 1.16 mg/dL (0.66-1.25); EST GLOMERULAR FILTRATION RATE > 60.0 ML/MIN; ETHYL ALCOHOL < 10 mg/dL (0-10); Glucose 155 mg/dL (74-106); SALICYLATE < 1.0 mg/dL (2-20); SGOT/AST 238 U/L (17-59); SGPT/ALT 156 U/L (0-50); SODIUM 127 mmol/L (137-145)
[2022-07-02 11:47] LABS: Potassium 2.8 mmol/L (3.5-5.1)
[2022-07-02] MEDS ORDERED: POTASSIUM CHLORIDE 20 mEq IN WATER 100ML 200 ML IV ONE (12:03)
[2022-07-02] MEDS: POTASSIUM CHLORIDE 20 mEq IN WATER 100ML 20 MEQ/100 ML BAG IV SCH ×2 (12:04→13:58)
[2022-07-02 12:13] LABS: INFLUENZA A NEGATIVE (NEGATIVE); INFLUENZA B NEGATIVE (NEGATIVE); RESPIRATORY SYNCTIAL VIRUS NEGATIVE (Negative); SARS-CoV-2 Xpert Express NEGATIVE (NEGATIVE)
[2022-07-02] MEDS ORDERED: Magnesium 1 Gm / 100 Ml D5W*** 100 ML IV ONE ×2 (13:14→16:56)
[2022-07-02] MEDS ORDERED: ENALAPRILAT 2.5 MG INJECTION IV ONE ×2 (14:05→14:07)
[2022-07-02 18:04] VITALS: BP 118/76; PULSE 78; O2SAT 97
== END 2022-07-02 18:04 | disposition home or self-care (01) ==
LOC: ED 10:52
DX: F10.20 Alcohol dependence, uncomplicated (principal); E86.0 Dehydration; E87.6 Hypokalemia; E83.42 Hypomagnesemia; R11.2 Nausea with vomiting, unspecified; R19.7 Diarrhea, unspecified; I10 Essential (primary) hypertension; Z79.899 Other long term (current) drug therapy
CPT/HCPCS: 0241U; 36000; 36415; 80053; 80307; 81015; 83735; 85025; 87086; 93005; 96360; 96361; 96374; 96375; 99284; G0480; J2060; J2405; J3475; J3480